=== PATIENT | female | born 1980 | race Caucasian/White ===

== ENCOUNTER → 2016-08-30 | Outpatient (CLI) | payer MEDICAID ==
[2016-08-30 14:34] LABS: Appearance,Urine Clear (Clear); Bilirubin,Urine Negative (Negative); Glucose,Urine (UA) 4+ (Negative); Ketones,Urine Negative (Negative); Leukocyte Esterase,Urine Negative (Negative); Nitrite,Urine Negative (Negative); PH, Urine 7.5 (5.0-8.0); Protein,Urine Trace (Negative); Specific Gravity,Urine 1.022 (1.001-1.035); UA Billing (MACRO vs. MICRO) CHEM; Urobilinogen,Urine <2.0 mg/dL (<2.0)
[2016-08-30 15:12] LABS: Hepatitis B Surface Ag Index 0.08
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
[2016-08-31 10:12] LABS: HIV-1/HIV-2 Ab Screen NONREAC (NON REAC)
== END | disposition home or self-care (01) ==
LOC: WWCWWP 10:33
PROVIDERS: ATTEND Obstetrics & Gynecology
DX: Z11.3 Encounter for screening for infections with a predominantly sexual mode of transmission (principal); Z20.2 Contact with and (suspected) exposure to infections with a predominantly sexual mode of transmission
CPT/HCPCS: 81003; 86780; 87086; 87340; 87389; 87491; 87591

== ENCOUNTER → 2016-12-07 | Outpatient (CLI) | payer MEDICAID ==
[2016-12-07 14:47] LABS: Basophils % (A) 0 %; CH 31.7; CHCM 33.5; Eosinophils # (A) 0.1 k/uL (0-0.7); Eosinophils % (A) 1 %; HCT 48.8 % (34.0-46.0); HDW 2.28; HGB 15.8 gm/dL (11.4-16.0); Luc # (Auto) 0.13; Luc % (Auto) 1; Lymphocytes # (A) 1.6 k/uL (1.0-4.8); Lymphocytes % (A) 16 %; MCH 30.7 pg (25.0-35.0); MCHC 32.3 g/dL (31.0-37.0); MCV 95.1 fL (80.0-100.0); Mean Platelet Volume 7.1; Monocytes # (A) 0.4 k/uL (0-1.0); Monocytes % (A) 4 %; Neutrophils # (A) 7.5 k/uL (1.3-7.7); Neutrophils % (A) 77 %; RBC 5.13 m/uL (3.80-5.40); RDW 12.7 % (11.5-15.5); WBC 9.7 k/uL (3.8-10.6); WBC (Perox) 9.63
[2016-12-07 15:03] LABS: ALT 25 U/L (9-52); AST 25 U/L (14-36); Alkaline Phosphatase 214 U/L (38-126); Anion Gap 10 mmol/L; Blood Urea Nitrogen 12 mg/dL (7-17); Calcium 9.9 mg/dL (8.4-10.2); Carbon Dioxide 25 mmol/L (22-30); Chloride 104 mmol/L (98-107); Creatine Kinase 66 U/L (30-135); Glucose 245 mg/dL (74-99); Non-African American GFR(MDRD) >60 (>60 ml/min/1.73 sqM); Potassium 4.6 mmol/L (3.5-5.1); Sodium 139 mmol/L (137-145); Total Bilirubin 0.5 mg/dL (0.2-1.3); Total Protein 7.8 g/dL (6.3-8.2)
[2016-12-07 17:46] LABS: Hemoglobin A1C 7.9 % (4.2-6.1)
== END | disposition home or self-care (01) ==
LOC: LABWHC1 14:13
PROVIDERS: ATTEND Internal Medicine
DX: F41.9 Anxiety disorder, unspecified (principal)
CPT/HCPCS: 36415; 80053; 82550; 83036; 84439; 84443; 84484; 85025; 85379

== ENCOUNTER → 2016-12-12 | Outpatient (CLI) | payer MEDICAID ==
--- NOTE | 2016-12-12 09:22 | US ---
EXAMINATION TYPE: US abdomen complete DATE OF EXAM: 12/12/2016 7:57 AM COMPARISON: NONE CLINICAL HISTORY: Abnormal level of Alkaline Phosphates R74.8. epigastric pain EXAM MEASUREMENTS: Liver Length: 9.2 cm Gallbladder Wall: Surgically absent cm CBD: 0.4 cm Spleen: 9.8 cm Right Kidney: 9.6 x 3.7 x 4.3 cm Left Kidney: 9.9 x 4.1 x 5.0 cm Pancreas: visualized portions wnl Liver: wnl Gallbladder: Surgically absent CBD: wnl Spleen: wnl Right Kidney: No hydronephrosis or nephrolithiasis. Left Kidney: No hydronephrosis or nephrolithiasis. Upper IVC: wnl Abd Aorta: wnl The liver is homogenous. The intrahepatic portion of the IVC and proximal abdominal aorta are within normal limits. Gallbladder surgically absent.. Common bile duct is unremarkable. The visualized po rtions of the pancreas are homogenous. The spleen is unremarkable. Kidneys are symmetric and free o f hydronephrosis. No renal lesions are seen. IMPRESSION: 1. No acute process.
--- NOTE | 2016-12-12 11:38 | NM ---
EXAMINATION TYPE: NM bone scan whole body DATE OF EXAM: 12/12/2016 11:26 AM COMPARISON: NONE HISTORY: Abnormal alkaline phosphatase Delayed whole-body scanning was performed following the injection of 24.6 mCi Tc 99m MDP. Images acq uired 3 hours post injection. FINDINGS: Uptake seen within the feet is typical of arthritic change. There is no abnormal increased or reduced uptake. Renal uptake is normal. IMPRESSION: No significant abnormality noted
== END ==
LOC: RADNMMAIN 06:59
PROVIDERS: ATTEND Internal Medicine
DX: R74.8 Abnormal levels of other serum enzymes (principal)
CPT/HCPCS: 76700; 78306; A9503

== ENCOUNTER → 2017-03-13 | Outpatient (CLI) | payer MEDICAID ==
[2017-03-13 07:48] LABS: Basophils % (A) 0 %; CH 31.6; CHCM 33.2; Eosinophils # (A) 0.1 k/uL (0-0.7); Eosinophils % (A) 2 %; HDW 2.29; HGB 15.1 gm/dL (11.4-16.0); Luc # (Auto) 0.09; Luc % (Auto) 2; Lymphocytes # (A) 1.3 k/uL (1.0-4.8); Lymphocytes % (A) 23 %; MCH 32.8 pg (25.0-35.0); MCHC 34.3 g/dL (31.0-37.0); MCV 95.5 fL (80.0-100.0); Mean Platelet Volume 7.6; Monocytes # (A) 0.3 k/uL (0-1.0); Monocytes % (A) 5 %; Neutrophils # (A) 3.8 k/uL (1.3-7.7); Neutrophils % (A) 68 %; WBC 5.6 k/uL (3.8-10.6); WBC (Perox) 5.46
[2017-03-13 09:50] LABS: Hemoglobin A1C 8.4 % (4.2-6.1)
[2017-03-13 10:47] LABS: ALT 29 U/L (9-52); AST 21 U/L (14-36); Alkaline Phosphatase 142 U/L (38-126); Anion Gap 8 mmol/L; Blood Urea Nitrogen 11 mg/dL (7-17); Calcium 9.4 mg/dL (8.4-10.2); Carbon Dioxide 28 mmol/L (22-30); Chloride 103 mmol/L (98-107); Cholesterol 136 mg/dL (<200); Creatine Kinase 58 U/L (30-135); Glucose 248 mg/dL (74-99); HDL Cholesterol 55 mg/dL (40-60); Iron 134 ug/dL (37-170); Non-African American GFR(MDRD) >60 (>60 ml/min/1.73 sqM); Potassium 4.9 mmol/L (3.5-5.1); Sodium 139 mmol/L (137-145); Total Bilirubin 0.8 mg/dL (0.2-1.3); Total Protein 6.8 g/dL (6.3-8.2); Triglycerides 84 mg/dL (<150)
[2017-03-13 10:57] LABS: % Iron Saturation 50.2 % (20-50); Total Iron Binding Capacity 267 ug/dL (265-497)
== END | disposition home or self-care (01) ==
LOC: LABWHC1 07:04
PROVIDERS: ATTEND Internal Medicine
DX: E06.3 Autoimmune thyroiditis (principal); K58.9 Irritable bowel syndrome, unspecified; F41.9 Anxiety disorder, unspecified; L50.2 Urticaria due to cold and heat
CPT/HCPCS: 36415; 80053; 80061; 82550; 82728; 83036; 83540; 83550; 84439; 84443; 85025

== ENCOUNTER → 2017-03-22 | Outpatient (CLI) | payer MEDICAID ==
--- NOTE | 2017-03-22 10:37 | XR ---
Cervical spine HISTORY: Polyarthritis, M13.0 5 views of the cervical spine Cervical vertebral bodies show preserved height, alignment, and bone mineralization. There is no evid ent foraminal encroachment. Disc spaces and prevertebral soft tissues are normal. Minimal anterolisth esis grade 1 C7-T1. Sclerosis present in the posterior elements at this level. IMPRESSION: Facet arthropathy at the cervicothoracic junction. Cervical MRI may be of benefit.
--- NOTE | 2017-03-22 10:39 | XR ---
Lumbar spine HISTORY: Polyarthritis, M13.0 3 views of the lumbar spine No comparisons Surgical clips are present in the right upper quadrant. Lumbar vertebral bodies show preserved height , alignment, and bone mineralization. Disc spaces are maintained with the exception of some loss of d isc height L5-S1. There is multilevel spondylosis. Sclerosis present in the posterior elements of the lumbosacral junction. IMPRESSION: Mild degenerative disc disease, facet arthropathy.
--- NOTE | 2017-03-22 10:42 | XR ---
Thoracic spine HISTORY: Polyarthritis 3 views of the thoracic spine Comparison the lumbar spine same date Thoracic vertebral bodies show preserved height, alignment, and bone mineralization. Disc spaces are maintained. No paraspinal mass. IMPRESSION: No significant abnormalities evident.
--- NOTE | 2017-03-22 10:44 | XR ---
AP pelvis HISTORY: Polyarthritis, M13.0 Single frontal view pelvis, no comparisons Bone mineralization, joint spaces and alignment are maintained IMPRESSION: No significant abnormalities evident.
== END | disposition home or self-care (01) ==
LOC: RADXRMAIN 09:27
PROVIDERS: ATTEND Physician Assistant
DX: M51.36 Other intervertebral disc degeneration, lumbar region (principal); M12.88 Other specific arthropathies, not elsewhere classified, other specified site
CPT/HCPCS: 36415; 72050; 72072; 72100; 72170; 80053; 81001; 82085; 82164; 82306; 82550; 83516; 83883; 84165; 84432; 84439; 84443; 84550; 85025; 85613; 85652; 85730; 86038; 86140; 86147; 86160; 86162; 86200; 86225; 86235; 86255; 86334; 86376; 86431; 86803; 86812; 87340

== ENCOUNTER → 2017-03-22 | Outpatient (CLI) | payer MEDICAID ==
[2017-03-22 10:49] LABS: Basophils % (A) 0 %; CHCM 34.3; Eosinophils # (A) 0.1 k/uL (0-0.7); Eosinophils % (A) 2 %; HCT 44.9 % (34.0-46.0); HDW 2.39; HGB 14.7 gm/dL (11.4-16.0); Luc # (Auto) 0.09; Luc % (Auto) 1; Lymphocytes # (A) 1.7 k/uL (1.0-4.8); Lymphocytes % (A) 22 %; MCH 30.8 pg (25.0-35.0); MCHC 32.9 g/dL (31.0-37.0); MCV 93.6 fL (80.0-100.0); Mean Platelet Volume 8.4; Monocytes # (A) 0.4 k/uL (0-1.0); Monocytes % (A) 5 %; Neutrophils # (A) 5.3 k/uL (1.3-7.7); Neutrophils % (A) 70 %; RBC 4.79 m/uL (3.80-5.40); RDW 13.3 % (11.5-15.5); WBC 7.6 k/uL (3.8-10.6); WBC (Perox) 7.08
[2017-03-22 10:56] LABS: Appearance,Urine Cloudy (Clear); Bacteria,Urine Occasional /hpf; Bilirubin,Urine Negative (Negative); Glucose,Urine (UA) Negative (Negative); Ketones,Urine 1+ (Negative); Leukocyte Esterase,Urine Trace (Negative); Mucus,Urine Occasional /hpf; Nitrite,Urine Negative (Negative); PH, Urine 6.5 (5.0-8.0); Particle Count 3510; Protein,Urine Negative (Negative); Specific Gravity,Urine 1.009 (1.001-1.035); Squamous Epithelial Cell,Urine 6 /hpf (0-4); UA Billing (MACRO vs. MICRO) MICRO; Urobilinogen,Urine <2.0 mg/dL (<2.0); WBC,Urine 5 /hpf (0-5)
[2017-03-22 11:13] LABS: ALT 32 U/L (9-52); AST 27 U/L (14-36); Alkaline Phosphatase 108 U/L (38-126); Anion Gap 10 mmol/L; Blood Urea Nitrogen 6 mg/dL (7-17); Calcium 9.6 mg/dL (8.4-10.2); Carbon Dioxide 27 mmol/L (22-30); Chloride 102 mmol/L (98-107); Creatine Kinase 65 U/L (30-135); Glucose 112 mg/dL (74-99); Non-African American GFR(MDRD) >60 (>60 ml/min/1.73 sqM); Potassium 3.9 mmol/L (3.5-5.1); Sodium 139 mmol/L (137-145); Total Bilirubin 0.8 mg/dL (0.2-1.3); Total Protein 7.1 g/dL (6.3-8.2); Uric Acid 2.9 mg/dL (3.7-7.4)
[2017-03-22 11:43] LABS: Hepatitis B Surface Ag Index 0.07
[2017-03-22 12:00] LABS: Hepatitis C Virus IgG Ab Negative (Negative); Hepatitis C Virus IgG Index 0.04
[2017-03-22 12:35] LABS: Erythrocyte Sedimentation Rate 10 mm/hr (0-20)
[2017-03-22 16:09] LABS: Rheumatoid Factor, Qnt 10 IU/mL (<12)
[2017-03-22 16:18] LABS: ANA w/Reflex to Titer NEGATIVE (NEGATIVE); Cyclic Citrull Pep IgG Unit 0.7 U/mL; Cyclic Citrullinated Pep IgG NEGATIVE (NEGATIVE); RNP AB Interpretation NEGATIVE (NEGATIVE); Scleroderma SC-70 Ab Interp NEGATIVE (NEGATIVE)
[2017-03-23 05:55] LABS: Complement Total (CH50) 41 U/mL (42 - 95)
[2017-03-23 06:02] LABS: Aldolase 3.7 U/L (1.2-7.6)
[2017-03-23 09:18] LABS: Free Kappa Lt Chain Qnt, Serum 1.72 mg/dL (0.33-1.94)
[2017-03-23 12:23] LABS: HLA B27 NEGATIVE; HLA B27 Comment SEEBELOW
[2017-03-26 07:40] LABS: C-ANCA <1:20 Titer (<1:20); P-ANCA <1:20 Titer (<1:20)
== END | disposition home or self-care (01) ==
LOC: LABWHC1 10:02
PROVIDERS: ATTEND Physician Assistant
DX: E06.3 Autoimmune thyroiditis (principal); M13.0 Polyarthritis, unspecified
CPT/HCPCS: 36415; 80053; 81001; 82085; 82164; 82306; 82550; 83516; 83883; 84165; 84432; 84439; 84443; 84550; 85025; 85613; 85652; 85730; 85732; 86038; 86140; 86147; 86160; 86162; 86200; 86225; 86235; 86255; 86334; 86376; 86431; 86803; 86812; 87340

== ENCOUNTER → 2017-06-26 | Outpatient (CLI) | payer MEDICAID ==
--- NOTE | 2017-06-26 14:50 | MR ---
EXAMINATION TYPE: MR cervical spine wo con DATE OF EXAM: 06/26/2017 COMPARISON: NONE HISTORY: 37 year-old female cervical disc disorder at C5-C6 TECHNIQUE: Multiplanar, multisequence images of the cervical spine were acquired. Findings: No craniocervical junction abnormalities, predental space widening, or prevertebral soft tissue swell ing. Normal alignment of the cervical spine. Fatty matrix hemangioma within the left C3 vertebral body. No suspicious bone marrow replacement. Very mild early disc desiccation in the upper to mid cervical spine with slight posterior disc bulgin g at C4-C5 and C5-C6. Scattered mild facet degenerative change. There is no significant neuroforaminal stenosis within the cervical spine. At C3-C4, C4-C5, and C5-C6, there is minimal ventral impression on the thecal sac but without signifi cant spinal canal stenosis. No cord abutment or cord flattening. There is normal course, caliber, and signal intensity of the cervical spinal cord. There is a 1.1 cm T2 hyperintense nodule left lobe of the thyroid gland. IMPRESSION: 1. Very mild early disc desiccation in the upper to mid cervical spine with minimal posterior disc bu lging and scattered mild facet degenerative changes. 2. No significant spinal canal or neuroforaminal stenosis. 3. A 1.1 cm nodule in the left lobe of the thyroid gland can be further evaluated with thyroid ultras ound.
== END | disposition home or self-care (01) ==
LOC: RADMRIMAIN 10:43
PROVIDERS: ATTEND Internal Medicine
DX: M50.20 Other cervical disc displacement, unspecified cervical region (principal)
CPT/HCPCS: 72141

== ENCOUNTER → 2017-06-28 | Outpatient (CLI) | payer MEDICAID ==
--- NOTE | 2017-06-28 14:48 | US ---
EXAMINATION TYPE: US thyroid st tissue head/neck DATE OF EXAM: 06/28/2017 COMPARISON: MRI cervical spine June 26, 2017 CLINICAL HISTORY: E04.1 THYROID NODULE. 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 0.8 X 0.4 x 0.3 cm hypoechoic mixed nodule at the lower medial pole with well-defined margins. This nodule is wider than tall and shows no intranodular vascularity. LEFT: # of nodules measured on left: 1 1. 1.5 X 1.1 x 0.9 cm isoechoic solid nodule at the mid pole with well-defined margins. This nodul e is taller than wide. and shows intranodular vascularity. ISTHMUS: # of nodules measured in the isthmus: 0 Bilateral neck scanned, no evidence of lymphadenopathy. Correlating with MRI there is a normal-sized thyroid gland with 1.5 cm isoechoic solid nodule mid jalil e level with well-defined margins and peripheral halo or lucency IMPRESSION: A 1.5 cm isoechoic solid nodule is confirmed left thyroid lobe. Need to further investigate by ultras ound guided fine-needle aspiration should be based on clinical correlation.
== END | disposition home or self-care (01) ==
LOC: RADUSWWP 12:47
PROVIDERS: ATTEND Internal Medicine
DX: E04.1 Nontoxic single thyroid nodule (principal)
CPT/HCPCS: 76536

== ENCOUNTER 2017-07-06 12:28 | Day surgery (SDC) | payer MEDICAID ==
[2017-07-06] MEDS: ALPRAZolam 0.5 MG TAB PO STA ×2 (13:04→13:08)
--- NOTE | 2017-07-06 14:34 | US ---
EXAMINATION TYPE: US FNA thyroid DATE OF EXAM: 07/06/2017 COMPARISON: NONE HISTORY: Thyroid nodule. Maximal barrier technique was utilized. After informed consent, skin overlying the lesion was locali zed with ultrasound and the overlying skin prepped and draped. Ultrasound was utilized using sterile technique. Lidocaine was used for local anesthesia. six passes with a 25-gauge needle were made into the nodule and aspirated specimen was submitted to cytology. Following the procedure hemostasis ach ieved. No immediate complication. The patient discharged in stable condition. IMPRESSION: STATUS POST ULTRASOUND GUIDED FINE NEEDLE ASPIRATION OF THYROID NODULE, PATHOLOGY IS PEND ING. THIS PROCEDURE WAS PERFORMED BY THE UNDERSIGNED.
[2017-07-06 14:41] VITALS: TEMP 97.1
[2017-07-06 14:42] VITALS: BP 109/73; PULSE 75; RESP 16
== END 2017-07-06 14:40 | disposition home or self-care (01) ==
LOC: RADPROMAIN 12:28
PROVIDERS: ATTEND Internal Medicine
DX: E04.1 Nontoxic single thyroid nodule (principal)
CPT/HCPCS: 10022; 76942; 88173; 88305

== ENCOUNTER → 2017-11-10 | Outpatient (CLI) | payer MEDICAID ==
[2017-11-10 11:26] LABS: Basophils % (A) 0 %; Eosinophils # (A) 0.1 k/uL (0-0.7); Eosinophils % (A) 1 %; HCT 46.1 % (34.0-46.0); Lymphocytes # (A) 1.9 k/uL (1.0-4.8); Lymphocytes % (A) 25 %; MCH 30.2 pg (25.0-35.0); MCHC 32.5 g/dL (31.0-37.0); MCV 92.8 fL (80.0-100.0); Mean Platelet Volume 7.5; Monocytes # (A) 0.5 k/uL (0-1.0); Monocytes % (A) 6 %; Neutrophils % (A) 67 %; Platelet Count 244 k/uL (150-450); RBC 4.97 m/uL (3.80-5.40); RDW 13.1 % (11.5-15.5); WBC 7.6 k/uL (3.8-10.6)
[2017-11-10 11:39] LABS: ALT 22 U/L (9-52); AST 23 U/L (14-36); Albumin 4.2 g/dL (3.5-5.0); Alkaline Phosphatase 174 U/L (38-126); Anion Gap 10 mmol/L; Blood Urea Nitrogen 10 mg/dL (7-17); Calcium 9.7 mg/dL (8.4-10.2); Carbon Dioxide 26 mmol/L (22-30); Chloride 104 mmol/L (98-107); Cholesterol 142 mg/dL (<200); Creatine Kinase 62 U/L (30-135); Glucose 228 mg/dL (74-99); HDL Cholesterol 72 mg/dL (40-60); LDL Cholesterol,Calculated 62 mg/dL (0-99); Potassium 4.6 mmol/L (3.5-5.1); Sodium 140 mmol/L (137-145); Total Bilirubin 0.9 mg/dL (0.2-1.3); Total Protein 7.4 g/dL (6.3-8.2); Triglycerides 39 mg/dL (<150)
[2017-11-10 11:54] LABS: T4, Free (Free Thyroxine) 0.93 ng/dL (0.78-2.19)
[2017-11-10 17:02] LABS: Iron Saturation 38.11 (12.00-45.00)
[2017-11-10 17:11] LABS: Vitamin D 25 Hydroxy 27.2 ng/mL (30.0-100.0)
[2017-11-10 18:32] LABS: Hemoglobin A1C 7.8 % (4.0-6.0)
== END | disposition home or self-care (01) ==
LOC: LABWHC1 07:52
PROVIDERS: ATTEND Internal Medicine
DX: E06.3 Autoimmune thyroiditis (principal); E55.9 Vitamin D deficiency, unspecified; D64.9 Anemia, unspecified
CPT/HCPCS: 36415; 80053; 80061; 82306; 82550; 82728; 83036; 83540; 83550; 84439; 84443; 85025

== ENCOUNTER → 2017-12-04 | Outpatient (CLI) | payer MEDICAID ==
[2017-12-04 14:26] VITALS: BP 120/84; PULSE 92; TEMP 97.5; BMI 25.3
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
== END | disposition home or self-care (01) ==
LOC: WWCWWP 09:36
PROVIDERS: ATTEND Obstetrics & Gynecology
DX: Z53.9 Procedure and treatment not carried out, unspecified reason (principal)

== ENCOUNTER → 2017-12-04 | Outpatient (CLI) | payer MEDICAID ==
[2017-12-05 06:19] LABS: Hepatitis C IgG Antibody Non-Reactive (Non-Reactive)
[2017-12-05 06:23] LABS: HIV AB P24 Non-Reactive (Non-Reactive); HIV P24 AG Non-Reactive (Non-Reactive)
[2017-12-06 16:27] LABS: C. trachomatis,PCR Negative (Neg,Equiv); Chlamydia trachomatis Source Cervix; N. gonorrhoeae,PCR Negative (Neg,Equiv); Neisseria Source Cervix
== END | disposition home or self-care (01) ==
LOC: LABWHC1 17:10
PROVIDERS: ATTEND Obstetrics & Gynecology
DX: Z11.3 Encounter for screening for infections with a predominantly sexual mode of transmission (principal)
CPT/HCPCS: 36415; 86780; 86803; 87340; 87390; 87491; 87591

== ENCOUNTER → 2017-12-26 | Outpatient (CLI) | payer MEDICAID ==
--- NOTE | 2017-12-26 12:43 | US ---
EXAMINATION TYPE: US pelvis complete transvag DATE OF EXAM: 12/26/2017 COMPARISON: NONE CLINICAL HISTORY: N92.0 Menorrhagia W/Regular cycle. TECHNIQUE: Transvaginal (TV) and Transabdominal (TA) . Transabdominal sonographic images of the pel vis were acquired. Transvaginal sonographic images were medically necessary to better assess the fol lowing anatomy: uterus and ovaries Date of LMP: unknown EXAM MEASUREMENTS: Uterus: 7.7 x 3.8 x 5.6 cm Endometrial Stripe: 0.9 cm Right Ovary: 3.1 x 1.4 x 2.3 cm Left Ovary: 4.5 x 2.0 x 2.3 cm 1. Uterus: Retroverted Nabothian cyst = 0.7cm 2. Endometrium: wnl 3. Right Ovary: follicles noted 4. Left Ovary: follicles noted 5. Bilateral Adnexa: wnl 6. Posterior cul-de-sac: wnl IMPRESSION: Unremarkable endometrial thickness and uterine echogenicity. Ovaries are also within norm al limits.
== END | disposition home or self-care (01) ==
LOC: RADUSWWP 10:58
PROVIDERS: ATTEND Obstetrics & Gynecology
DX: N92.0 Excessive and frequent menstruation with regular cycle (principal)
CPT/HCPCS: 76830; 76856

== ENCOUNTER → 2018-01-03 | Outpatient (CLI) | payer MEDICAID ==
[2018-01-03 12:08] LABS: Basophils % (A) 0 %; Eosinophils # (A) 0.1 k/uL (0-0.7); Eosinophils % (A) 1 %; HCT 44.6 % (34.0-46.0); HGB 14.7 gm/dL (11.4-16.0); Lymphocytes # (A) 1.1 k/uL (1.0-4.8); Lymphocytes % (A) 15 %; MCH 30.5 pg (25.0-35.0); MCHC 33.1 g/dL (31.0-37.0); MCV 92.2 fL (80.0-100.0); Mean Platelet Volume 7.7; Monocytes # (A) 0.3 k/uL (0-1.0); Monocytes % (A) 5 %; Neutrophils # (A) 5.7 k/uL (1.3-7.7); Neutrophils % (A) 78 %; Platelet Count 250 k/uL (150-450); RBC 4.84 m/uL (3.80-5.40); RDW 12.8 % (11.5-15.5); WBC 7.3 k/uL (3.8-10.6)
== END | disposition home or self-care (01) ==
LOC: LABPAT 10:53
PROVIDERS: ATTEND Obstetrics & Gynecology
DX: Z01.812 Encounter for preprocedural laboratory examination (principal)
CPT/HCPCS: 36415; 85025

== ENCOUNTER 2018-01-04 06:03 | Day surgery (SDC) | payer MEDICAID ==
[2018-01-03 09:14] VITALS: BMI 24.5
--- NOTE | 2018-01-03 20:14 | P.HPOB ---
History of Present Illness H&P Date: 01/03/18 Chief Complaint: Menorrhagia, family planning This is a 37 y.o. female, 1, para 1, who presents for dilation and curettage with hysteroscopy and Novasure endometrial ablation along with laparoscopic bilateral tubal ligation via fulguration. She complains of menstrual cycles that have been very heavy and worsening over the last couple months. Her periods have been heavy and painful for at least a year but have become abnormally long over the last couple months. She complains of cramping dizziness and low back pain with her menses. She is unable to take control pills secondary to her other medical problems. Her menses are currently occurring monthly and lasting up to 10 days with spotting for 4-7 days and then a heavy cycle for 3-4 days with large clots. She can only wear panty liners due to ALLERGIES and sometimes will bleed through the panty liner. She desires no further children and would like to ligation for family planning. Obstetrical history: . History of 1 vaginal delivery. Gynecologic history: No history of sexual transmitted diseases. She is currently using condoms for control. Social history: She is . She works full-time at [employer] in [place]. Review of Systems Constitutional: Denies chills, Denies fever Eyes: denies blurred vision, denies pain Ears, nose, mouth and throat: Denies headache, Denies sore throat Cardiovascular: Denies chest pain, Denies shortness of breath Respiratory: Denies cough Gastrointestinal: Reports diarrhea Genitourinary: Reports menorrhagia Menstruation: Reports period heavy Musculoskeletal: Reports low back pain Integumentary: Denies pruritus, Denies rash Neurological: Denies numbness, Denies weakness Psychiatric: Reports anxiety, Reports depression Endocrine: Reports cold intolerance Past Medical History Past Medical History: Diabetes Mellitus, Skin Disorder, Thyroid Disorder Additional Past Medical History / Comment(s): ibs, hashimotos disease, cold induced urticaria, small hiatal hernia, celiac disease History of Any Multi-Drug Resistant Organisms: None Reported Past Surgical History: Cholecystectomy, Ear Surgery, Orthopedic Surgery Additional Past Surgical History / Comment(s): left foot bunionectomy, wisdom teeth removed Past Anesthesia/Blood Transfusion Reactions: Motion Sickness Additional Past Anesthesia/Blood Transfusion Reaction / Comment(s): claustrophobia Past Psychological History: Anxiety Smoking Status: Never smoker Past Alcohol Use History: Occasional Past Drug Use History: None Reported - Past Family History Mother Family Medical History: No Reported History Additional Family Medical History / Comment(s): . Father Family Medical History: Hyperlipidemia Additional Family Medical History / Comment(s): also aunt had thyroid cancer Medications and Allergies Home Medications Medication Instructions Recorded Confirmed Type Insulin Aspart [NovoLOG Flexpen] 0 unit SQ TID-W/MEALS PRN 11/04/14 01/03/18 History Insulin Glargine,Hum.rec.anlog 20 units SQ HS 11/05/14 01/03/18 History [Lantus Solostar] Escitalopram [Lexapro] 5 mg PO DAILY 07/03/17 01/03/18 History ALPRAZolam [Xanax] 0.5 mg PO TID PRN 01/03/18 01/03/18 History Biotin(Dose Unknown) 1 tbsp PO HS 01/03/18 01/03/18 History Dicyclomine [Bentyl] 20 mg PO TID PRN 01/03/18 01/03/18 History Pedi Multivit No.25/Folic Acid 1 tab PO DAILY 01/03/18 01/03/18 History [Flintstones Multivit Chew Tab] Allergies Allergy/AdvReac Type Severity Reaction Status Date / Time latex Allergy Rash/Hives Verified 01/03/18 09:01 loracarbef [From Lorabid] AdvReac Diarrhea Verified 01/03/18 09:01 Sulfa (Sulfonamide AdvReac Rash/Hives Verified 01/03/18 09:01 Antibiotics) cold allegy Allergy Rash/Hives, Uncoded 01/03/18 09:01 itching oats, milk, wheat, Allergy Unknown Uncoded 01/03/18 09:01 peanuts,eggs,soy Exam Osteopathic Statement: *. No significant issues noted on an osteopathic structural exam other than those noted in the History and Physical/Consult. - Vital Signs Vital signs: Intake and Output 01/03/18 01/03/18 01/03/18 06:59 14:59 22:59 Other: Weight 58.967 kg HEENT: Within normal limits Heart: Regular rate and rhythm Lungs: Clear to auscultation bilaterally Abdomen: Soft, nontender Pelvic exam: Uterus is retroverted, nontender, with no adnexal masses or tenderness noted. Extremities: Negative Homans Assessment and Plan (1) Menorrhagia with regular cycle Status: Acute Code(s): N92.0 - EXCESSIVE AND FREQUENT MENSTRUATION WITH REGULAR CYCLE SNOMED Code(s): 633493501 (2) Family planning Status: Acute Code(s): Z30.09 - ENCOUNTER FOR OT GENERAL CNSL AND ADVICE ON CONTRACEPTION SNOMED Code(s): 887017202 Plan: Proceed with dilation and curettage with hysteroscopy and NovaSure endometrial ablation along with laparoscopic bilateral tubal ligation via fulguration. I have discussed the risks, benefits, and alternative therapies for the above- mentioned procedure and for both sedation/anesthesia as well as necessary blood products administration, if indicated, as they pertain to this patient. The patient has indicated her understanding and acceptance of the risks and procedures discussed.
[~2018-01-04 06:03] MED LIST: DEXAMETHASONE SOD PHOSPHATE 10 MG/ML 1 ML VIAL IV ONE; LACTATED RINGERS 1,000 ML IV SCH; MIDAZOLAM 2 MG/2 ML VIAL IV PRN; ONDANSETRON 4 MG/2 ML VIAL IVP ONE; Pre Op ABX Message 1 EACH MISC MISCELLANE ONE; SCOPOLAMINE 1.5MG/72HR PATCH TRANSDERM ONE; fentaNYL (PF) 50 MCG/ML 2 ML AMP IV PRN
[2018-01-04 06:46] VITALS: RESP 16
[2018-01-04] MEDS ORDERED: LIDOCAINE 1% 20 ML VIAL (10MG/ML) FOR IV START INTRADERMA ONE (07:18)
[2018-01-04 07:23] LABS: Glucose,Whole Blood 191 mg/dL (75-99)
[2018-01-04] MEDS ORDERED: ROCURONIUM BROMIDE 10 MG/ML 10 ML VIAL IV ONE (07:35)
[2018-01-04] MEDS ORDERED: SUCCINYLCHOLINE CHLORIDE 100 MG/5 ML SYR IV ONE (07:35)
[2018-01-04] MEDS ORDERED: NEOSTIGMINE 1 MG/ML 10 ML VIAL ONE (07:35)
[2018-01-04] MEDS ORDERED: MIDAZOLAM 2 MG/2 ML VIAL ONE (07:35)
[2018-01-04] MEDS ORDERED: GLYCOPYRROLATE 0.2 MG/ML 2 ML VIAL ONE (07:35)
[2018-01-04] MEDS ORDERED: KETOROLAC 30 MG/ML 1 ML VIAL ONE (07:35)
[2018-01-04] MEDS ORDERED: PROPOFOL 10 MG/ML 20 ML VIAL IV ONE (07:35)
[2018-01-04] MEDS ORDERED: fentaNYL (PF) 50 MCG/ML 2 ML AMP ONE (07:35)
[2018-01-04] MEDS ORDERED: LIDOCAINE 1% INJ 10MG/ML (20 ML MDV) ONE (07:35)
[2018-01-04] MEDS ORDERED: BUPIVACAINE (PF) 0.25% 30 ML VIAL SQ ONE ×2 (08:15)
--- NOTE | 2018-01-04 08:30 | P.OP ---
Date of Procedure: 01/04/18 Preoperative Diagnosis: Menorrhagia with regular cycle Family planning Postoperative Diagnosis: Same Procedure(s) Performed: Dilation and curettage with hysteroscopy and NovaSure endometrial ablation Laparoscopic bilateral tubal ligation via fulguration Anesthesia: LASHAWN Surgeon: Liliam Mclean Estimated Blood Loss (ml): 5 Pathology: other (Endometrial curettings) Condition: stable Disposition: same day Indications for Procedure: This is a 37 y.o. female, 1, para 1, who presents for dilation and curettage with hysteroscopy and Novasure endometrial ablation along with laparoscopic bilateral tubal ligation via fulguration. She complains of menstrual cycles that have been very heavy and worsening over the last couple months. Her periods have been heavy and painful for at least a year but have become abnormally long over the last couple months. She complains of cramping dizziness and low back pain with her menses. She is unable to take control pills secondary to her other medical problems. Her menses are currently occurring monthly and lasting up to 10 days with spotting for 4-7 days and then a heavy cycle for 3-4 days with large clots. She can only wear panty liners due to ALLERGIES and sometimes will bleed through the panty liner. She desires no further children and would like to ligation for family planning. Operative Findings: Uterus is retroverted. Cervix is sounded to 3-1/2 cm. Uterus is sounded to 7 cm. Upon hysteroscopy, a fairly dyssynchronous endometrial pattern was noted. Both tubal ostia were visualized. A minimal to moderate amount of endometrial curettings are obtained. Upon laparoscopy, normal uterus tubes and ovaries are noted. Appendix is visualized and appears normal. Description of Procedure: The patient is taken to the operating room. She is placed in the dorsal lithotomy position after general anesthesia was given. She is prepped and draped in the normal sterile fashion. Bladder is drained with a catheter and then removed. Pelvic exam is performed under anesthesia. Uterus is found to be retroverted with no adnexal masses. She is placed in slight Trendelenburg position. A right angle retractor is used to visualize the cervix. The anterior lip of the cervix is grasped with a single-tooth tenaculum. Cervix is sounded to 3.5 cm. Uterus is sounded to 7 cm. Cervix is gently dilated with Gomez dilators until a hysteroscope could be passed. Hysteroscopy is performed using normal saline. The above noted findings are noted. Next a polyp forceps is introduced. A minimal amount of tissue was obtained. Next medium-sized size sharp curette was placed. A moderate amount of endometrial curettings were obtained. Next NovaSure array was inserted into the endometrial cavity. Length was set at 4 cm and width was determined to be 4.3 cm. Next cavity assessment was completed and passed on the first try. Next NovaSure array was fired at 95 W for 87 seconds. Next the array was removed, inspected and then discarded. Next the hysteroscope was reinserted. Uniform charring was noted. Pictures were taken. Hysteroscope was removed. Next a kroner uterine manipulator is inserted through the cervix and the balloon is inflated. Single- tooth tenaculum was removed from the anterior lip of the cervix. Minimal bleeding was noted. All other instruments removed from the vagina. Gloves are changed and attention is turned to the abdomen. The infraumbilical fold was grasped in transverse fashion with 2 Allis clamps. A small transverse incision was made with a scalpel. A hemostat was used to carry the incision down to the underlying layer of fascia. A towel clip was placed above the umbilicus for retraction. A 11 mm disposable bladeless trocar was then inserted into the peritoneal cavity under direct visualization. Once inside, pneumoperitoneum was achieved with CO2 gas. The insert was removed and the camera was placed. Intraperitoneal placement was confirmed. No bleeding was noted. Next the patient was placed in Trendelenburg position. A small stab incision was made suprapubically and a 5 mm disposable bladeless trocar was inserted into the peritoneal cavity under direct visualization. Once inside pelvic contents were inspected. Next a bipolar Kleppinger instrument was placed through the inferior trocar and the midportion of each tube was brought away from other structures and completely fulgurated on approximate 2-3 cm segment of each tube. Excellent hemostasis was noted. A picture was taken. Pneumoperitoneum was released after the inferior trocar was removed under direct visualization. The upper trocar was then removed. The fascial incision was closed with 0 Vicryl suture in interrupted [id number]-ad-[id number] stitch. The skin incisions were then closed with 4-0 Vicryl suture in a subcuticular fashion. The skin incisions are then injected with quarter percent Marcaine. Approximately 7 mL were used. Next the kroner uterine manipulator was removed. Minimal bleeding was noted. All sponge and needle counts are correct. The patient is then taken to recovery room in stable condition.
[2018-01-04 08:50] VITALS: TEMP 96.8
[2018-01-04] MEDS ORDERED: HYDROmorphone 0.5 MG/0.5 ML SYRINGE IVP ONE (08:57)
[2018-01-04] MEDS ORDERED: diphenhydrAMINE 50 MG/ML 1 ML VIAL IVP ONE (09:00)
[2018-01-04 10:51] VITALS: BP 113/77; PULSE 74
[2018-01-04 11:11] LABS: Glucose,Whole Blood 234 mg/dL (75-99)
== END 2018-01-04 11:43 | disposition home or self-care (01) ==
LOC: OR 06:03
PROVIDERS: ATTEND Obstetrics & Gynecology
DX: Z30.2 Encounter for sterilization (principal); N92.0 Excessive and frequent menstruation with regular cycle; N85.4 Malposition of uterus; E11.9 Type 2 diabetes mellitus without complications; E06.3 Autoimmune thyroiditis; K58.9 Irritable bowel syndrome, unspecified; K90.0 Celiac disease; L50.2 Urticaria due to cold and heat; F41.9 Anxiety disorder, unspecified; Z79.4 Long term (current) use of insulin; Z79.899 Other long term (current) drug therapy; Z91.040 Latex allergy status; Z88.2 Allergy status to sulfonamides; Z91.012 Allergy to eggs; Z91.011 Allergy to milk products; Z91.010 Allergy to peanuts; Z91.018 Allergy to other foods; Z91.048 Other nonmedicinal substance allergy status; Z88.1 Allergy status to other antibiotic agents
CPT/HCPCS: 88305; 58563; 58670; J2250; J1200; J1100; J2710; J2405; J2001; J3010; J1885; J0330; J2704; J1170; 81025; 86850; 86900; 86901

== ENCOUNTER → 2018-03-14 | Outpatient (CLI) | payer MEDICAID ==
--- NOTE | 2018-03-14 10:54 | ECHOS ---
STRESS ECHOCARDIOGRAM INDICATIONS: Chest pain. MEDICATIONS: NovoLog, Lantus BASELINE HEART RATE: 81 BASELINE BLOOD PRESSURE: 100/75 MAXIMUM HEART RATE: 176 MAXIMUM BLOOD PRESSURE: 125/66 85% MPHR: 156 100% MPHR: 184 METS: 11.7 MAXIMUM STAGE REACHED: III TOTAL EXERCISE TIME: 10:01 CLINICAL INFORMATION: Baseline EKG shows sinus rhythm, normal axis, normal intervals. Patient exercised on Benji protocol for a total of 10 minutes achieving 11 METS, 95% of predicted maximal heart rate without chest pain or diagnostic ST-segment depression. Baseline echo shows normal left ventricular size, wall motion and systolic function. Postexercise there is normal hyperdynamic response of all segments of myocardium noted. CONCLUSIONS: 1. Good exercise tolerance. 2. Negative stress test by EKG criteria. 3. Negative stress echo. MMODL / IJN: [id number] /
== END | disposition home or self-care (01) ==
LOC: RADNMMAIN 09:07
PROVIDERS: ATTEND Internal Medicine
DX: R07.9 Chest pain, unspecified (principal)
CPT/HCPCS: 93351

== ENCOUNTER → 2018-04-08 | Outpatient (CLI) | payer MEDICAID ==
[2018-04-08 07:40] LABS: Basophils % (A) 0 %; Eosinophils # (A) 0.2 k/uL (0-0.7); Eosinophils % (A) 2 %; HCT 43.3 % (34.0-46.0); HGB 14.6 gm/dL (11.4-16.0); Lymphocytes # (A) 1.6 k/uL (1.0-4.8); Lymphocytes % (A) 22 %; MCH 30.5 pg (25.0-35.0); MCHC 33.6 g/dL (31.0-37.0); MCV 90.7 fL (80.0-100.0); Mean Platelet Volume 7.8; Monocytes # (A) 0.4 k/uL (0-1.0); Monocytes % (A) 5 %; Neutrophils % (A) 69 %; Platelet Count 279 k/uL (150-450); RBC 4.77 m/uL (3.80-5.40); RDW 12.4 % (11.5-15.5); WBC 7.2 k/uL (3.8-10.6)
[2018-04-08 07:54] LABS: ALT 24 U/L (9-52); AST 22 U/L (14-36); Albumin 3.7 g/dL (3.5-5.0); Alkaline Phosphatase 108 U/L (38-126); Anion Gap 8 mmol/L; Blood Urea Nitrogen 11 mg/dL (7-17); Calcium 9.5 mg/dL (8.4-10.2); Carbon Dioxide 28 mmol/L (22-30); Chloride 105 mmol/L (98-107); Cholesterol 138 mg/dL (<200); Creatine Kinase 59 U/L (30-135); Glucose 106 mg/dL (74-99); HDL Cholesterol 61 mg/dL (40-60); LDL Cholesterol,Calculated 62 mg/dL (0-99); Potassium 3.9 mmol/L (3.5-5.1); Sodium 141 mmol/L (137-145); Total Bilirubin 0.8 mg/dL (0.2-1.3); Total Protein 6.6 g/dL (6.3-8.2); Triglycerides 74 mg/dL (<150)
[2018-04-08 07:56] LABS: Appearance,Urine Cloudy (Clear); Bacteria,Urine Rare /hpf; Bilirubin,Urine Negative (Negative); Blood,Urine Negative (Negative); Color,Urine Yellow; Glucose,Urine (UA) 3+ (Negative); Ketones,Urine 1+ (Negative); Leukocyte Esterase,Urine Small (Negative); Mucus,Urine Few /hpf; Nitrite,Urine Negative (Negative); Protein,Urine Trace (Negative); Specific Gravity,Urine 1.023 (1.001-1.035); Squamous Epithelial Cell,Urine 15 /hpf (0-4); Urobilinogen,Urine <2.0 mg/dL (<2.0); WBC,Urine 18 /hpf (0-5)
[2018-04-08 08:09] LABS: T4, Free (Free Thyroxine) 0.99 ng/dL (0.78-2.19)
[2018-04-08 11:20] LABS: Vitamin D 25 Hydroxy 23.2 ng/mL (30.0-100.0)
[2018-04-08 11:27] LABS: Folate, Serum 15.2 ng/mL
[2018-04-08 11:51] LABS: Gliadin AB IgA, Unit 1.8 U/mL
[2018-04-08 13:14] LABS: Hemoglobin A1C 8.1 % (4.0-6.0)
== END | disposition home or self-care (01) ==
LOC: LABWHC1 06:36
PROVIDERS: ATTEND Internal Medicine
DX: E10.9 Type 1 diabetes mellitus without complications (principal); R00.1 Bradycardia, unspecified; K58.9 Irritable bowel syndrome, unspecified
CPT/HCPCS: 36415; 80053; 80061; 81001; 82043; 82306; 82550; 82570; 82607; 82746; 83036; 83516; 84439; 84443; 85025

== ENCOUNTER 2018-05-01 11:20 | Emergency (ER) | payer MEDICAID ==
[2018-05-01 11:41] VITALS: RESP 18
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
--- NOTE | 2018-05-01 12:51 | XR ---
EXAMINATION TYPE: XR chest 2V DATE OF EXAM: 05/01/2018 COMPARISON: NONE HISTORY: Trauma and pain TECHNIQUE: Frontal and lateral views of the chest are obtained. FINDINGS: There is no focal air space opacity, pleural effusion, or pneumothorax seen. The cardiac silhouette size is within normal limits. The osseous structures are intact. Surgical clips present in the right upper quadrant. There may be a slight spinal curvature. IMPRESSION: No acute cardiopulmonary process.
--- NOTE | 2018-05-01 12:54 | XR ---
Cervical spine HISTORY: Trauma and pain 5 views of the cervical spine, comparison prior exam 06/20/2017 Cervical vertebral bodies show preserved height, stable alignment, and bone mineralization. Disc spac es are maintained. Prevertebral soft tissues are normal. Neural foramina are patent. IMPRESSION: No acute fracture or subluxation.
--- NOTE | 2018-05-01 12:56 | XR ---
Right humerus HISTORY: Trauma and pain 2 views of the right humerus Bone mineralization, joint spaces and alignment are maintained. There are overlying artifacts. IMPRESSION: No acute fracture or dislocation.
[2018-05-01 13:55] VITALS: BP 124/79; PULSE 79; TEMP 97.2
== END 2018-05-01 13:54 | disposition home or self-care (01) ==
LOC: EC 11:20
DX: S40.022A Contusion of left upper arm, initial encounter (principal); R07.81 Pleurodynia; M79.601 Pain in right arm; E11.9 Type 2 diabetes mellitus without complications; Z88.1 Allergy status to other antibiotic agents; Z88.2 Allergy status to sulfonamides; Z91.011 Allergy to milk products; Z91.018 Allergy to other foods; Z91.040 Latex allergy status; Z91.048 Other nonmedicinal substance allergy status; Z79.4 Long term (current) use of insulin; Z79.899 Other long term (current) drug therapy; Y04.0XXA Assault by unarmed brawl or fight, initial encounter; Y92.009 Unspecified place in unspecified non-institutional (private) residence as the place of occurrence of the external cause
CPT/HCPCS: 71046; 72050; 99284

== ENCOUNTER → 2018-05-31 | Outpatient (CLI) | payer MEDICAID ==
--- NOTE | 2018-06-02 14:42 | MR ---
EXAMINATION TYPE: MR shoulder RT wo con DATE OF EXAM: 05/31/2018 COMPARISON: Plain film 05/01/2018 HISTORY: Rt shoulder pain x 3 weeks, recent fall TECHNIQUE: Multiplanar, multisequence imaging of the right shoulder is performed without contrast. FINDINGS: Rotator Cuff: Intact, no rotator cuff tear. There is some minimal fluid in the subacromial subdeltoid bursa. Acromioclavicular Joint: Mild arthropathy change causing some minimal mass effect on the musculotendi nous junction of supraspinatus, distal acromion slightly downturned Glenohumeral Joint: Intact Labrum: There is cystic foci adjacent to the anterior labrum possibly representing para labral cysts, difficult to exclude labral tear Biceps Tendon: The long head of biceps is in normal location within bicipital groove. Bone marrow signal: Pseudocysts present within the humeral head. Other: No additional significant abnormality is appreciated. IMPRESSION: There may be a component of impingement, correlate. Difficult to exclude labral tear as described. Ad ditional findings above.
== END ==
LOC: RADMRIMAIN 20:40
PROVIDERS: ATTEND Internal Medicine
DX: M25.511 Pain in right shoulder (principal)

== ENCOUNTER → 2018-09-04 | Outpatient (CLI) | payer MEDICAID ==
[2018-09-04 11:41] LABS: Albumin 4.2 g/dL (3.80-4.90); Anion Gap 6.5 mmol/L (4.00-12.00); Calcium 9.4 mg/dL (8.7-10.3); Carbon Dioxide 29.5 mmol/L (21.6-31.8); Globulin 2.1 g/dL (1.6-3.3); Potassium 4.3 mmol/L (3.5-5.5); Total Bilirubin 0.9 mg/dL (0.3-1.2); Total Protein 6.3 g/dL (6.2-8.2)
[2018-09-04 13:11] LABS: Hemoglobin A1C 8.2 % (4.0-6.0)
== END | disposition home or self-care (01) ==
LOC: LABWHC1 06:30
PROVIDERS: ATTEND Internal Medicine
DX: E10.65 Type 1 diabetes mellitus with hyperglycemia (principal)
CPT/HCPCS: 36415; 80053; 80061; 82043; 82306; 82570; 83036

== ENCOUNTER → 2018-10-07 | Outpatient (CLI) | payer MEDICAID ==
[2018-10-07 17:00] LABS: T4, Free (Free Thyroxine) 0.9 ng/dL (0.80-1.80)
== END | disposition home or self-care (01) ==
LOC: LABWHC1 09:56
PROVIDERS: ATTEND Internal Medicine
DX: E06.3 Autoimmune thyroiditis (principal)
CPT/HCPCS: 36415; 84439; 84443

== ENCOUNTER → 2018-10-15 | Outpatient (CLI) | payer MEDICAID ==
[2018-10-15 14:05] VITALS: BP 112/77; PULSE 87; RESP 16; TEMP 98.1
--- NOTE | 2018-10-15 14:46 | P.PN ---
Progress Note - Text Progress Note Date: 10/15/18 Chief Complaint: left breast lump over the past 3 days HPI: this is a 38-year-old with an LMP of December 2017. The patient thinks she felt a left breast lump a few days ago. She has also some soreness in the breast. She denies any spontaneous nipple discharge. She states she will occasionally notice a drop of yellowish liquid if she squeezes the left nipple. She states the lump that she has felt is about the size of a half of a shelled peanut. She has been amenorrheic since her endometrial ablation done in December 2017. ROS: she denies fever, respiratory, cardiac, or G.I. problems. PE: Blood pressure: 112/77, height 5'1", weight 132 pounds, temperature 91, pulse 87. This is a well developed, well nourished, white female who is alert and orientedx3, in no acute distress. Breast exam: breasts are normal in appearance. There is no unusual puckering or dimpling. There is moderate fibrocystic changes throughout both breasts without a discrete breast mass. The patient states she felt a small lump at the 9 o'clock position of the left breast. No discrete masses noted, however she does have very dense breast tissue with prominent breasts glandular tissue throughout both breasts. No nipple discharges demonstrated. Axillary exam is negative bilaterally. Impression: 1. 38-year-old female with moderate fibrocystic changes of the breasts without discrete palpable breast abnormality on exam today. 2. It seems that the patient is palpating fibrocystic changes of the breast at the 9 o'clock position of the left breast. Plan: 1. We have discussed how the patient probably has hormonal cycling even though she has been amenorrheic since her endometrial ablation in December 2017. 2. She was instructed to make an appointment if she feels a greater prominence in a breast lump in the next few weeks. She will make an appointment for 2 months for a recheck at the time of her annual well woman examination Time spent with the patient: 10 minutes
== END | disposition home or self-care (01) ==
LOC: WWCWWP 12:10
PROVIDERS: ATTEND Obstetrics & Gynecology
DX: Z53.9 Procedure and treatment not carried out, unspecified reason (principal)

== ENCOUNTER → 2018-10-22 | Outpatient (CLI) | payer MEDICAID ==
[2018-10-23 10:34] LABS: Barley IgE <0.35 kU/L (<0.35); Barley IgE Class CLASS 0; Oat IgE Class CLASS 0; Rye (Food) IgE <0.35 kU/L (<0.35); Rye (Food) IgE Class CLASS 0
[2018-10-23 10:35] LABS: Gluten IgE Class CLASS 0; Hops IgE <0.35 kU/L (<0.35)
== END | disposition home or self-care (01) ==
LOC: LABWHC1 09:26
PROVIDERS: ATTEND Internal Medicine
DX: Z91.018 Allergy to other foods (principal)
CPT/HCPCS: 36415; 82785; 86003

== ENCOUNTER → 2018-11-21 | Outpatient (CLI) | payer MEDICAID ==
[2018-11-21 09:29] LABS: Anion Gap 9 mmol/L; Blood Urea Nitrogen 15 mg/dL (7-17); Calcium 9.4 mg/dL (8.4-10.2); Carbon Dioxide 25 mmol/L (22-30); Chloride 104 mmol/L (98-107); Glucose 240 mg/dL (74-99); Potassium 4.1 mmol/L (3.5-5.1); Sodium 138 mmol/L (137-145)
== END ==
LOC: LABWHC1 08:53
PROVIDERS: ATTEND Internal Medicine
DX: E10.65 Type 1 diabetes mellitus with hyperglycemia (principal)
CPT/HCPCS: 36415; 80048; 84681

== ENCOUNTER → 2019-01-28 | Outpatient (CLI) | payer MEDICAID ==
[2019-01-28 19:23] LABS: T4, Free (Free Thyroxine) 0.8 ng/dL (0.80-1.80)
== END | disposition home or self-care (01) ==
LOC: LABWHC1 13:35
PROVIDERS: ATTEND Internal Medicine
DX: E06.3 Autoimmune thyroiditis (principal)
CPT/HCPCS: 36415; 84439; 84443

== ENCOUNTER → 2019-02-07 | Outpatient (CLI) | payer MEDICAID ==
[2019-02-07 13:13] LABS: Hemoglobin A1C 7.5 % (4.0-6.0)
[2019-02-07 17:10] LABS: Cholesterol 135 mg/dL (0-200); Triglycerides <50.0 mg/dL (0.0-149.0); VLDL Calculation 9.98 mg/dL (5.00-40.00)
== END | disposition home or self-care (01) ==
LOC: LABWHC1 06:26
PROVIDERS: ATTEND Internal Medicine
DX: E10.65 Type 1 diabetes mellitus with hyperglycemia (principal)
CPT/HCPCS: 36415; 80061; 82043; 82570; 83036

== ENCOUNTER → 2019-04-30 | Outpatient (CLI) | payer MEDICAID ==
--- NOTE | 2019-04-30 15:32 | US ---
EXAMINATION TYPE: US thyroid st tissue head/neck DATE OF EXAM: 04/30/2019 COMPARISON: NONE CLINICAL HISTORY: E06.3 HASHIMOTOS, f/u nodules GLAND SIZE: Right Lobe: 4.5 x 1.2 x 1.2 cm Overall Parenchyma: heterogenous Left Lobe: 4.1 x 1.7 x 1.7 cm Overall Parenchyma: heterogeneous Isthmus Thickness: 0.2 cm NODULES RIGHT: # of nodules measured on right: 1 1. 0.5 X 0.3 x 0.4 cm hypoechoic solid nodule at the lower pole with well-defined margins. This no dule is wider than tall and shows intranodular vascularity. Prior size: 0.8 x 0.3 x 0.4 cm LEFT: # of nodules measured on left: 1 1. 1.9 X 1.2 x 1.4 cm isoechoic solid nodule at the mid pole with well-defined margins. This nodul e is taller than wide and shows intranodular vascularity. Prior size: 1.5 x 0.9 x 1.1 cm Bilateral neck scanned, no evidence of lymphadenopathy. IMPRESSION: 1. Increase in size of a hypervascular solid left thyroid nodule. Percutaneous biopsy was performed o n 07/06/2017. Correlate with results. 2. No interval growth of the subcentimeter right thyroid nodule in an overall heterogenous thyroid gl and.
== END | disposition home or self-care (01) ==
LOC: RADUSWWP 13:54
PROVIDERS: ATTEND Internal Medicine
DX: E04.2 Nontoxic multinodular goiter (principal); E06.3 Autoimmune thyroiditis
CPT/HCPCS: 76536

== ENCOUNTER → 2019-06-24 | Outpatient (CLI) | payer MEDICAID ==
--- NOTE | 2019-06-24 12:46 | MR ---
EXAMINATION TYPE: MR brain wo/w con DATE OF EXAM: 06/24/2019 COMPARISON: NONE HISTORY: Blurred vision, headaches, dizziness, neck pain TECHNIQUE: Multiplanar, multisequence images of the brain and brainstem is performed without and with IV contras t, utilizing 6 mL intravenous Gadavist . FINDINGS: Diffusion weighted images demonstrate no evidence of a recent infarct or other diffusion ab normality. There is no extra-axial fluid collection or significant white matter signal abnormality. The ventricular system and cisternal spaces are normal in size and appearance. The brain volume is age appropriate. Midline structures demonstrate normal morphology. The craniocervical junction appears within normal limits. Post contrast images demonstrate no abnormal enhancement. The dural venous sinuses appear pa tent. Some artifact distortion at level of the anterior globes is present. Visualized paranasal sinus es are clear. No suspicious opacification mastoid air cells laterally. IMPRESSION: No suspicious findings identified.
== END | disposition home or self-care (01) ==
LOC: RADMRIMAIN 11:20
PROVIDERS: ATTEND Ophthalmology
DX: G44.219 Episodic tension-type headache, not intractable (principal); H53.8 Other visual disturbances
CPT/HCPCS: 70553; A9585

== ENCOUNTER → 2019-07-23 | Outpatient (CLI) | payer MEDICAID ==
[2019-07-23 10:07] VITALS: BP 108/72; PULSE 70; RESP 16; TEMP 98
--- NOTE | 2019-07-23 11:04 | P.HPOB ---
History of Present Illness H&P Date: 07/23/19 Chief Complaint: The patient is here for her routine gynecologic exam. This is a 39-year-old with an LMP of December 2017. The patient has been amenorrheic since her endometrial ablation and tubal ligation done in December 2017. She will infrequently notice a small spot of blood after the ablation, but this is infrequent. She also noticed occasional breast tenderness so she believes she is still cycling. She denies any recent HSV outbreaks. She has been experiencing urinary symptoms for the last 1-2 weeks including urinary frequency, dysuria and voiding small amounts. She is otherwise without complaints. Review of Systems The patient's weight has been stable over the last year. She denies respiratory, cardiac, or G.I. problems. : As in the HPI. Past Medical History Past Medical History: Diabetes Mellitus, Osteoarthritis (OA), Thyroid Disorder Additional Past Medical History / Comment(s): Type 1 diabetes. Irritable bowel syndrome, raynaulds disease, colitis,hashimotos disease, cold induced urticaria. 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 History of Any Multi-Drug Resistant Organisms: None Reported Past Surgical History: Cholecystectomy, Tubal Ligation, Uterine Ablation Additional Past Surgical History / Comment(s): bunionectomy, fx ankle, wisdom teeth removed. Endometrial ablation 2017. Past Anesthesia/Blood Transfusion Reactions: Motion Sickness Additional Past Anesthesia/Blood Transfusion Reaction / Comment(s): clausterphobia Past Psychological History: No Psychological Hx Reported Smoking Status: Never smoker Past Alcohol Use History: Rare (2 per year) Past Drug Use History: None Reported Additional History: She is single and has been with her boyfriend since 2018. She works at [employer]. - Past Family History Mother Family Medical History: No Reported History Additional Family Medical History / Comment(s): . Father Family Medical History: Hyperlipidemia Additional Family Medical History / Comment(s): also aunt had thyroid cancer. Grandfather had lung cancer. Medications and Allergies Home Medications Medication Instructions Recorded Confirmed Type Dicyclomine [Bentyl] 20 mg PO QID PRN 07/23/19 07/23/19 History INSULIN LISPRO (For Pump) [humaLOG 0.01 units SQ-PUMP CONTINUOUS 07/23/19 07/23/19 History (For Pump)] Multivitamin [Multivitamins Adult 1 each PO DAILY 07/23/19 07/23/19 History Gummies] Allergies Allergy/AdvReac Type Severity Reaction Status Date / Time latex Allergy Rash/Hives Verified 07/23/19 10:07 loracarbef [From Lorabid] AdvReac Diarrhea Verified 07/23/19 10:07 Sulfa (Sulfonamide AdvReac Rash/Hives Verified 07/23/19 10:07 Antibiotics) cold allegy Allergy Rash/Hives, Uncoded 07/23/19 10:07 itching oats, milk, wheat, Allergy Unknown Uncoded 07/23/19 10:07 peanuts,eggs,soy Exam Vital Signs Temp Pulse Resp BP Pulse Ox 07/23/19 10:03 98.0 F 70 16 108/72 99 Intake and Output 07/22/19 07/23/19 07/23/19 22:59 06:59 14:59 Other: Weight 61.689 kg Height 5 feet 1 inch, weight 136 pounds, BMI 25.7. This is a well-developed well-nourished white female who is alert and oriented times 3 in no acute distress. HEENT: Within normal limits. NECK: Supple without mass or thyromegaly. CHEST AND LUNGS: Clear to auscultation. HEART: Regular rate and rhythm. BREASTS: Are without mass or discharge. The right breast is minimally tender. AXILLARY EXAM: Negative for adenopathy. BACK: Negative for CVA tenderness. ABDOMEN: Soft, nontender, without palpable masses. PELVIC EXAM: Normal external genitalia. Cervix and vagina appear normal. There i s no unusual discharge. There is no evidence of prolapse. The uterus is retroverted, nongravid size and nontender. There are no palpable adnexal masses or tenderness. RECTAL EXAM: negative for mass or tenderness. EXTREMITIES: Nontender. IMPRESSION: 1. 39-year-old female who is status post tubal ligation, with normal gynecologic exam. 2. Probable cystitis UTI with urinary frequency, dysuria with small voids. PLAN: 1. Pap smear was performed. 2. Self breast awareness was discussed with the patient. 3. Clean catch midstream urinalysis and urine culture will be sent. The patient will be treated empirically for a UTI with Macrobid. She is to take 1 by mouth twice a day 7 days. The patient also states she can get yeast infections easily when ever she takes antibiotics. Diflucan 150 mg by mouth 1 if she develops yeast infection symptoms. These 2 prescriptions will be sent to [facility] at [facility]. 4. The patient was asking if tubal ligation and endometrial ablation would be considered reversible. She states her boyfriend was asking about this since he does not have children. She understands that tubal sterilization can possibly be reversed, however, with the endometrial ablation should be considered dangerous and therefore, I have strongly recommended that she not look into any type of reversing of the sterilization procedure. We discussed how placenta accreta can be a very dangerous situation and therefore she should not get after these types of procedures. 5. She was advised to return in one year for her annual well woman exam.
[2019-07-23 14:45] LABS: Appearance,Urine Clear (Clear); Bilirubin,Urine Negative (Negative); Blood,Urine Negative (Negative); Color,Urine Yellow; Glucose,Urine (UA) 4+ (Negative); Ketones,Urine Negative (Negative); Leukocyte Esterase,Urine Negative (Negative); Nitrite,Urine Negative (Negative); Protein,Urine Negative (Negative); Specific Gravity,Urine 1.033 (1.001-1.035); Urobilinogen,Urine <2.0 mg/dL (<2.0)
== END | disposition home or self-care (01) ==
LOC: LABWHC1 09:53
PROVIDERS: ATTEND Obstetrics & Gynecology
DX: R35.0 Frequency of micturition (principal); R30.0 Dysuria
CPT/HCPCS: 81003; 87086

== ENCOUNTER → 2019-07-23 | Outpatient (CLI) | payer MEDICAID ==
--- NOTE | 2019-07-23 13:30 | US ---
EXAMINATION TYPE: US thyroid st tissue head/neck DATE OF EXAM: 07/23/2019 COMPARISON: US 04/30/19 CLINICAL HISTORY: E06.3 HASHIMOTOS . GLAND SIZE: Right Lobe: 4.2 x 1.1 x 1.3 cm Overall Parenchyma: heterogenous Left Lobe: 4.3 x 1.8 x 1.4 cm Overall Parenchyma: heterogeneous Isthmus Thickness: 0.3 cm NODULES RIGHT: # of nodules measured on right: 0 LEFT: # of nodules measured on left: 1 1. 2.0 X 1.3 x 1.4 cm hypoechoic solid nodule at the mid pole with well-defined margins; . This no dule is wider than tall and shows intranodular vascularity. Prior size: 1.9 x 1.2 x 1.4 cm ISTHMUS: # of nodules measured in the isthmus: 0 Bilateral neck scanned, no evidence of lymphadenopathy. IMPRESSION: Similar size of the left thyroid nodule. Continued surveillance is recommended with repeat ultrasound in 6-12 months.
== END ==
LOC: RADUSWWP 11:15
PROVIDERS: ATTEND Internal Medicine
DX: E04.1 Nontoxic single thyroid nodule (principal)
CPT/HCPCS: 76536

== ENCOUNTER → 2019-08-29 | Outpatient (CLI) | payer MEDICAID ==
[2019-08-29 15:19] LABS: HCT 45.7 % (34.0-46.0); HGB 15.2 gm/dL (11.4-16.0); MCHC 33.2 g/dL (31.0-37.0); MCV 93.4 fL (80.0-100.0); Mean Platelet Volume 8.6; Platelet Count 317 k/uL (150-450); RBC 4.89 m/uL (3.80-5.40); RDW 12.2 % (11.5-15.5); WBC 7.8 k/uL (3.8-10.6)
[2019-08-29 17:39] LABS: Erythrocyte Sedimentation Rate 8 mm/hr (0-20)
[2019-08-29 18:59] LABS: Thyroid Peroxidase Antibodies 141.6 U/mL (0.0-60.0)
[2019-08-29 19:34] LABS: ALT 15 U/L (8-44); AST 24 U/L (13-35); African American GFR (CKD) 94.7 (60.0-200.0); Albumin/Globulin Ratio 1.76 (1.60-3.17); Alkaline Phosphatase 139 U/L (41-126); BUN/Creat Ratio 12.22 Ratio (12.00-20.00); C Reactive Protein <0.4 mg/dL (0.0-0.8); Calcium 9.5 mg/dL (8.7-10.3); Carbon Dioxide 27.1 mmol/L (21.6-31.8); Chloride 104 mmol/L (96-109); Globulin 2.5 g/dL (1.6-3.3); Glucose 204 mg/dL (70-110); Non-African American GFR(CKD) 81.7 (60.0-200.0); Potassium 3.9 mmol/L (3.5-5.5); Rheumatoid Factor, Qnt 6 IU/mL (0-15); Sodium 139 mmol/L (135-145); Total Bilirubin 0.6 mg/dL (0.3-1.2); Total Protein 6.9 g/dL (6.2-8.2)
[2019-08-29 19:50] LABS: Anti-Smith Ab Interp NEGATIVE (NEGATIVE); Cyclic Citrull Pep IgG Unit 3.6 U/mL; Cyclic Citrullinated Pep IgG POSITIVE (NEGATIVE); DNA Double-Stranded NEGATIVE (NEGATIVE)
== END | disposition home or self-care (01) ==
LOC: LABWHC1 14:13
PROVIDERS: ATTEND Anesthesiology
DX: M35.00 Sjogren syndrome, unspecified (principal); E06.3 Autoimmune thyroiditis; R53.82 Chronic fatigue, unspecified
CPT/HCPCS: 36415; 80053; 84439; 84443; 85027; 85652; 86038; 86140; 86200; 86225; 86235; 86376; 86431

== ENCOUNTER → 2019-10-07 | Outpatient (CLI) | payer MEDICAID ==
[2019-10-07 16:43] LABS: African American GFR (CKD) 109.2 (60.0-200.0); Albumin 4.2 g/dL (3.80-4.90); Albumin/Globulin Ratio 1.91 (1.60-3.17); Anion Gap 6.9 mmol/L (4.00-12.00); BUN/Creat Ratio 11.25 Ratio (12.00-20.00); Calcium 9.6 mg/dL (8.7-10.3); Carbon Dioxide 27.1 mmol/L (21.6-31.8); Globulin 2.2 g/dL (1.6-3.3); Non-African American GFR(CKD) 94.2 (60.0-200.0); Potassium 4.2 mmol/L (3.5-5.5); Total Bilirubin 0.4 mg/dL (0.2-1.2); Total Protein 6.4 g/dL (6.2-8.2)
[2019-10-07 18:14] LABS: Urine Creatinine 89.9 mg/dL
== END ==
LOC: LABWHC1 10:41
PROVIDERS: ATTEND Internal Medicine Endocrinology, Diabetes & Metabolism
DX: E10.65 Type 1 diabetes mellitus with hyperglycemia (principal)
CPT/HCPCS: 36415; 80053; 82024; 82043; 82533; 82570; 84443; 86376

== ENCOUNTER → 2019-10-08 | Outpatient (CLI) | payer MEDICAID ==
[2019-10-08 12:23] LABS: Chol/HDL Ratio 2.31; Cholesterol 157 mg/dL (0-200); Triglycerides <50.0 mg/dL (0.0-149.0)
== END | disposition home or self-care (01) ==
LOC: LABWHC1 06:50
PROVIDERS: ATTEND Internal Medicine Endocrinology, Diabetes & Metabolism
DX: E10.65 Type 1 diabetes mellitus with hyperglycemia (principal)
CPT/HCPCS: 36415; 80061

== ENCOUNTER 2020-01-23 06:08 | Observation (INO) | payer MEDICAID ==
[2020-01-23] MEDS ORDERED: SODIUM CHLORIDE 0.9% 1,000 ML IV STA ×2 (06:21→07:54)
[2020-01-23] MEDS ORDERED: KETOROLAC 30 MG/ML 1 ML VIAL IVP STA (06:22)
[2020-01-23] MEDS ORDERED: LORazepam 1 MG TAB PO STA (06:22)
--- NOTE | 2020-01-23 06:23 | ED ---
General Adult HPI - General Chief complaint: Chest Pain Stated complaint: Chest pain Time Seen by Provider: 01/23/20 06:11 Source: patient, EMS, RN notes reviewed Mode of arrival: EMS Limitations: no limitations - History of Present Illness Initial comments: 39-year-old female with a past medical history of type 1 diabetes, irritable bowel syndrome, colitis, Bailey disease presents to the emergency department for a chief complaint of chest pain. Patient has had chest pain for the past 2 hours. Patient states the pain is a sharp pain in the bottom of her chest and radiates under her breast. Patient states that looking down and sitting up wors en her pain. Patient states symptoms taking deep breaths worsens the pain. Patient denies shortness of breath. Patient states she has been under a lot of stress lately but thought it might have been improving in the past 2 days. Patient denies smoking history. Denies any cardiac history. Denies history of hypercholesterol or high blood pressure.Patient has no other complaints at this time including shortness of breath, abdominal pain, nausea or vomiting, headache, or visual changes. - Related Data Home Medications Medication Instructions Recorded Confirmed Dicyclomine [Bentyl] 20 mg PO QID PRN 07/23/19 07/23/19 INSULIN LISPRO (For Pump) [humaLOG 0.01 units SQ-PUMP CONTINUOUS 07/23/19 07/23/19 (For Pump)] Multivitamin [Multivitamins Adult 1 each PO DAILY 07/23/19 07/23/19 Gummies] Previous Rx's Medication Instructions Recorded Fluconazole [Diflucan] 150 mg PO DAILY #1 tab 07/23/19 Nitrofurantoin Monohyd/M-Cryst 100 mg PO Q12HR 7 Days #14 cap 07/23/19 [Macrobid] Allergies Allergy/AdvReac Type Severity Reaction Status Date / Time latex Allergy Rash/Hives Verified 07/23/19 10:07 loracarbef [From Lorabid] AdvReac Diarrhea Verified 07/23/19 10:07 Sulfa (Sulfonamide AdvReac Rash/Hives Verified 07/23/19 10:07 Antibiotics) cold allegy Allergy Rash/Hives, Uncoded 07/23/19 10:07 itching oats, milk, wheat, Allergy Unknown Uncoded 07/23/19 10:07 peanuts,eggs,soy Review of Systems ROS Statement: Those systems with pertinent positive or pertinent negative responses have been documented in the HPI. ROS Other: All systems not noted in ROS Statement are negative. Past Medical History Past Medical History: Diabetes Mellitus, Fibromyalgia, Osteoarthritis (OA), Rheumatoid Arthritis (RA), Thyroid Disorder Additional Past Medical History / Comment(s): Type 1 diabetes. Irritable bowel syndrome, raynaulds disease, colitis,hashimotos disease, cold induced urticaria. 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 History of Any Multi-Drug Resistant Organisms: None Reported Past Surgical History: Cholecystectomy, Tubal Ligation, Uterine Ablation Additional Past Surgical History / Comment(s): bunionectomy, fx ankle, wisdom teeth removed. Endometrial ablation 2018. Past Anesthesia/Blood Transfusion Reactions: Motion Sickness Additional Past Anesthesia/Blood Transfusion Reaction / Comment(s): clausterphobia Past Psychological History: No Psychological Hx Reported Smoking Status: Never smoker Past Alcohol Use History: Rare Past Drug Use History: None Reported - Past Family History Mother Family Medical History: No Reported History Additional Family Medical History / Comment(s): . Father Family Medical History: Hyperlipidemia Additional Family Medical History / Comment(s): also aunt had thyroid cancer. Grandfather had lung cancer. General Exam Limitations: no limitations General appearance: alert, in no apparent distress Head exam: Present: atraumatic, normocephalic, normal inspection Eye exam: Present: normal appearance, PERRL, EOMI. Absent: scleral icterus, conjunctival injection, periorbital swelling ENT exam: Present: normal exam, mucous membranes moist Neck exam: Present: normal inspection, full ROM. Absent: tenderness, meningismu s, lymphadenopathy Respiratory exam: Present: normal lung sounds bilaterally, other (Hyperventilating). Absent: respiratory distress, wheezes, rales, rhonchi, stridor Cardiovascular Exam: Present: regular rate, normal rhythm, normal heart sounds, other. Absent: systolic murmur, diastolic murmur, rubs, gallop, clicks GI/Abdominal exam: Present: soft, normal bowel sounds. Absent: distended, tenderness, guarding, rebound, rigid Neurological exam: Present: alert Psychiatric exam: Present: normal affect, normal mood Course Vital Signs 01/23/20 01/23/20 01/23/20 06:15 06:16 07:53 Temperature 97.8 F Pulse Rate 100 80 Pulse Rate [ 89 Pulse Oximetery ] Respiratory 24 Rate Blood Pressure 111/74 99/66 O2 Sat by Pulse 100 99 Oximetry 01/23/20 09:03 Temperature Pulse Rate Pulse Rate [ Pulse Oximetery ] Respiratory Rate Blood Pressure 100/71 O2 Sat by Pulse Oximetry EKG Findings - EKG Comments: EKG Findings:: Normal sinus rhythm, ventricular rate 93, NE interval 128, QTc 455 Medical Decision Making - Medical Decision Making Vitals are stable. Patient's blood pressure is around 100 systolic which she states is normal for her. HPI and physical exam as documented. Chest pain is atypical with typical features. Pain is reproducible on exam. CBC is unremarkable. CMP unremarkable. Amylase and lipase are negative. EKG shows a normal sinus rhythm. Troponin is negative. D-dimer is within normal limits. Patient was given pain medication which did help significantly however pain did return. However patient is much more calm at this time. We tried a GI cocktail which did not seem to help with patient's pain. Dr Jeff also examined patient. Discussed this case with Dr. Goodman. Patient will be kept in observation for trending troponin. - Lab Data Result diagrams: 01/23/20 06:44 01/23/20 06:44 Lab Results 01/23/20 01/23/20 01/23/20 Range/Units 06:44 06:44 06:44 WBC 9.5 (3.8-10.6) k/uL RBC 4.76 (3.80-5.40) m/uL Hgb 14.8 (11.4-16.0) gm/dL Hct 43.6 (34.0-46.0) % MCV 91.6 (80.0-100.0) fL MCH 31.2 (25.0-35.0) pg MCHC 34.1 (31.0-37.0) g/dL RDW 12.7 (11.5-15.5) % Plt Count 273 (150-450) k/uL Neutrophils % 81 % Lymphocytes % 12 % Monocytes % 3 % Eosinophils % 3 % Basophils % 0 % Neutrophils # 7.7 (1.3-7.7) k/uL Lymphocytes # 1.1 (1.0-4.8) k/uL Monocytes # 0.3 (0-1.0) k/uL Eosinophils # 0.3 (0-0.7) k/uL Basophils # 0.0 (0-0.2) k/uL PT 10.0 (9.0-12.0) sec INR 1.0 (<1.2) APTT 22.1 (22.0-30.0) sec D-Dimer 0.33 (<0.60) mg/L FEU Sodium 138 (137-145) mmol/L Potassium 3.5 (3.5-5.1) mmol/L Chloride 108 H (98-107) mmol/L Carbon Dioxide 22 (22-30) mmol/L Anion Gap 8 mmol/L BUN 7 (7-17) mg/dL Creatinine 0.63 (0.52-1.04) mg/dL Est GFR (CKD-EPI)AfAm >90 (>60 ml/min/1.73 sqM) Est GFR (CKD-EPI)NonAf >90 (>60 ml/min/1.73 sqM) Glucose 203 H (74-99) mg/dL Calcium 9.6 (8.4-10.2) mg/dL Magnesium 1.8 (1.6-2.3) mg/dL Total Bilirubin 0.5 (0.2-1.3) mg/dL AST 41 H (14-36) U/L ALT 21 (4-34) U/L Alkaline Phosphatase 182 H (38-126) U/L Troponin I (0.000-0.034) ng/mL Total Protein 7.4 (6.3-8.2) g/dL Albumin 4.1 (3.5-5.0) g/dL Amylase (30-110) U/L Lipase (23-300) U/L 01/23/20 01/23/20 Range/Units 06:44 06:44 WBC (3.8-10.6) k/uL RBC (3.80-5.40) m/uL Hgb (11.4-16.0) gm/dL Hct (34.0-46.0) % MCV (80.0-100.0) fL MCH (25.0-35.0) pg MCHC (31.0-37.0) g/dL RDW (11.5-15.5) % Plt Count (150-450) k/uL Neutrophils % % Lymphocytes % % Monocytes % % Eosinophils % % Basophils % % Neutrophils # (1.3-7.7) k/uL Lymphocytes # (1.0-4.8) k/uL Monocytes # (0-1.0) k/uL Eosinophils # (0-0.7) k/uL Basophils # (0-0.2) k/uL PT (9.0-12.0) sec INR (<1.2) APTT (22.0-30.0) sec D-Dimer (<0.60) mg/L FEU Sodium (137-145) mmol/L Potassium (3.5-5.1) mmol/L Chloride (98-107) mmol/L Carbon Dioxide (22-30) mmol/L Anion Gap mmol/L BUN (7-17) mg/dL Creatinine (0.52-1.04) mg/dL Est GFR (CKD-EPI)AfAm (>60 ml/min/1.73 sqM) Est GFR (CKD-EPI)NonAf (>60 ml/min/1.73 sqM) Glucose (74-99) mg/dL Calcium (8.4-10.2) mg/dL Magnesium (1.6-2.3) mg/dL Total Bilirubin (0.2-1.3) mg/dL AST (14-36) U/L ALT (4-34) U/L Alkaline Phosphatase (38-126) U/L Troponin I <0.012 (0.000-0.034) ng/mL Total Protein (6.3-8.2) g/dL Albumin (3.5-5.0) g/dL Amylase 64 (30-110) U/L Lipase 139 (23-300) U/L Disposition Clinical Impression: Chest pain Disposition: ADMITTED IP TO THIS HOSP Condition: Fair Is patient prescribed a controlled substance at d/c from ED?: No Referrals: Uziel Goodman MD [Primary Care Provider] - 1-2 days Time of Disposition: 09:14
[2020-01-23 06:58] LABS: Basophils % (A) 0 %; Eosinophils # (A) 0.3 k/uL (0-0.7); Eosinophils % (A) 3 %; HCT 43.6 % (34.0-46.0); HGB 14.8 gm/dL (11.4-16.0); Lymphocytes # (A) 1.1 k/uL (1.0-4.8); Lymphocytes % (A) 12 %; MCH 31.2 pg (25.0-35.0); MCHC 34.1 g/dL (31.0-37.0); MCV 91.6 fL (80.0-100.0); Mean Platelet Volume 8.3; Monocytes # (A) 0.3 k/uL (0-1.0); Monocytes % (A) 3 %; Neutrophils # (A) 7.7 k/uL (1.3-7.7); Neutrophils % (A) 81 %; Platelet Count 273 k/uL (150-450); RBC 4.76 m/uL (3.80-5.40); RDW 12.7 % (11.5-15.5); WBC 9.5 k/uL (3.8-10.6)
[2020-01-23 07:08] LABS: ALT 21 U/L (4-34); AST 41 U/L (14-36); African American GFR (CKD) >90 (>60 ml/min/1.73 sqM); Albumin 4.1 g/dL (3.5-5.0); Alkaline Phosphatase 182 U/L (38-126); Anion Gap 8 mmol/L; Blood Urea Nitrogen 7 mg/dL (7-17); Calcium 9.6 mg/dL (8.4-10.2); Carbon Dioxide 22 mmol/L (22-30); Chloride 108 mmol/L (98-107); Glucose 203 mg/dL (74-99); Magnesium 1.8 mg/dL (1.6-2.3); Non-African American GFR(CKD) >90 (>60 ml/min/1.73 sqM); Potassium 3.5 mmol/L (3.5-5.1); Sodium 138 mmol/L (137-145); Total Bilirubin 0.5 mg/dL (0.2-1.3); Total Protein 7.4 g/dL (6.3-8.2)
[2020-01-23 07:13] LABS: D-Dimer 0.33 mg/L FEU (<0.60); Partial Thromboplastin Time 22.1 sec (22.0-30.0)
--- NOTE | 2020-01-23 07:13 | XR ---
EXAMINATION TYPE: XR chest 2V DATE OF EXAM: 01/23/2020 COMPARISON: Chest x-ray May 01, 2018. HISTORY: Chest pain today. TECHNIQUE: Frontal and lateral views of the chest are obtained. FINDINGS: There is persistent mild biapical pleural/parenchymal scarring. There is no focal air spac e opacity, pleural effusion, or pneumothorax seen. The cardiac silhouette size is within normal limi ts. The osseous structures are intact. Cholecystectomy clips are redemonstrated. IMPRESSION: No acute process. No significant change from prior.
[2020-01-23] MEDS ORDERED: ONDANSETRON 4 MG/2 ML VIAL IVP STA (07:54)
[2020-01-23 08:05] LABS: Amylase 64 U/L (30-110)
[2020-01-23] MEDS ORDERED: MAG HYDROX/AL HYDROX/SIMETH 30 ML, HYOSCYAMINE ELIXIR 10 ML, LIDOCAINE VISCOUS 2% 10 ML PO STA ×3 (08:36)
[2020-01-23] MEDS ORDERED: ASPIRIN 81 MG PO STA (09:14)
[2020-01-23] MEDS ORDERED: KETOROLAC 30 MG/ML 1 ML VIAL IVP PRN (09:17)
[2020-01-23] MEDS ORDERED: MORPHINE SULFATE 2 MG/ML SYRINGE IVP PRN (09:17)
[2020-01-23] MEDS ORDERED: DICYCLOMINE 20 MG TAB PO PRN (11:28)
[2020-01-23] MEDS ORDERED: INSULIN LISPRO (For Pump) 100 UNIT/ML VIAL SQ-PUMP SCH (11:30)
--- NOTE | 2020-01-23 15:47 | P.HPIM ---
History of Present Illness H&P Date: 01/23/20 Chief Complaint: Chest pain 39-year-old female one of my patient with a previous medical history significant for diabetes mellitus type 1 currently on insulin pump, fibromyalgia,anxiety disorder, irritable bowel syndrome, post traumatic stress disorder, Rheumatoid arthritis, possible lupus,patient was seen in my office a few days ago because of increased sore throat associated with low-grade temperature and minimal cough she was started on Z-Janes she took 2 pills of that and she was doing better she woke up at 5:00 in the morning today with the significant epigastric upper chest pain radiating up to the neck that woke her up from sleep and radiating to the back as well she could not catch her breath at that time and she could barely walk she ended up calling her parents and she decided to come to the ER for evaluation patient was complaining of some numb ness feeling around her legs that comes and goes, she was seen in the ER had a twelve-lead EKG that showed normal sinus rhythm without acute ST-T wave changes, her laboratory evaluation basically came back negative troponin came back negative 2, however because of the presentation patient was admitted to the hospital for evaluation by cardiology, patient stated that she did not eat much last night she had a Powerade and the only new medication that she took the day before was her Z-Janes, patient is denying any fever or chills at this time she has no dysuria she has no costovertebral tenderness, she was complaining of left lower extremity cramps, patient appeared a bit somewhat nauseated but she was complaining of abdominal pain as well, patient was admitted for evaluation and she will have an echocardiogram for evaluation of her LV function . Review of Systems Constitutional: Denies anorexia, Denies chronic headaches, Denies lethargy, Denies malaise, Denies sweats, Denies weakness, Denies weight gain Eyes: denies blurred vision, denies bulging eye, denies decreased vision Ears: deny: decreased hearing Ears, nose, mouth and throat: Denies dysphagia, Denies neck lump, Denies sore throat Cardiovascular: Reports chest pain, Denies decreased exercise tolerance, Denies dyspnea on exertion, Denies irregular heart beat, Denies leg edema, Denies rapid heart beat, Denies shortness of breath, Denies syncope Respiratory: Denies congestion, Denies cough, Denies cough with sputum, Denies home oxygen, Denies sleep apnea, Denies snoring, Denies wheezing Gastrointestinal: Reports abdominal pain, Reports excessive gas, Reports nausea, Denies bloating, Denies change in bowel habits, Denies heartburn, Denies hematemesis, Denies jaundice, Denies loss of appetite, Denies melena, Denies vomiting Genitourinary: Denies dysuria, Denies nocturia Musculoskeletal: Denies myalgias Musculoskeletal: absent: ankle pain, ankle stiffness, ankle swelling, elbow pain, elbow stiffness, elbow swelling, foot pain, foot stiffness, foot swelling, hand pain, hand stiffness, hand swelling, hip pain, hip stiffness, hip swelling, knee pain, knee stiffness, knee swelling, shoulder pain, shoulder stiffness, shoulder swelling, wrist pain, wrist stiffness, wrist swelling Integumentary: Denies pruritus, Denies rash Neurological: Denies numbness, Denies weakness Psychiatric: Denies anxiety, Denies depression Endocrine: Denies fatigue, Denies weight change Past Medical History Past Medical History: Chest Pain / Angina, Diabetes Mellitus, Eye Disorder, Fibromyalgia, Rheumatoid Arthritis (RA), Thyroid Disorder Additional Past Medical History / Comment(s): Type 1 diabetes. Irritable bowel syndrome, Cold Uticaria disease, hashimotos disease, Genital HSV in 2015 and HPV in the past. History of Any Multi-Drug Resistant Organisms: None Reported Past Surgical History: Cholecystectomy, Tubal Ligation, Uterine Ablation Additional Past Surgical History / Comment(s): bunionectomy, fx ankle, wisdom teeth removed. Endometrial ablation 2018. Past Anesthesia/Blood Transfusion Reactions: Motion Sickness Additional Past Anesthesia/Blood Transfusion Reaction / Comment(s): clausterphobia Past Psychological History: Anxiety, Depression, PTSD Smoking Status: Never smoker Past Alcohol Use History: Rare Past Drug Use History: None Reported - Past Family History Brother(s) Family Medical History: Asthma (Patient has 2 brothers one of them with asthma.) Son(s) Family Medical History: Diabetes Mellitus (One son with diabetes mellitus type 1.) Mother Family Medical History: Fibromyalgia (Mother 6-year-old with history of fibromyalgia.) Additional Family Medical History / Comment(s): arthritis her maternal gran dfather from [place] at age of 40. Father Family Medical History: Hyperlipidemia (Father is 65-year-old with history of hyperlipidemia.) Additional Family Medical History / Comment(s): also aunt had thyroid cancer. Grandfather had lung cancer. Medications and Allergies Home Medications Medication Instructions Recorded Confirmed Type INSULIN LISPRO (For Pump) [humaLOG 0.01 units SQ-PUMP CONTINUOUS 07/23/19 01/23/20 History (For Pump)] Azithromycin [Zithromax Z-pack] See Taper PO DIRECTED 01/23/20 01/23/20 History DULoxetine HCL [Cymbalta] 30 mg PO DAILY 01/23/20 01/23/20 History Dicyclomine [Bentyl] 20 mg PO DAILY PRN 01/23/20 01/23/20 History Nortriptyline [Pamelor] 25 mg PO AC-SUPPER 01/23/20 01/23/20 History Allergies Allergy/AdvReac Type Severity Reaction Status Date / Time latex Allergy Rash/Hives Verified 01/23/20 09:54 Sulfa (Sulfonamide Allergy Rash/Hives Verified 01/23/20 09:54 Antibiotics) Beef Containing Products AdvReac Unknown Verified 01/23/20 09:54 [Beef] egg AdvReac Unknown Verified 01/23/20 09:54 loracarbef [From Lorabid] AdvReac Diarrhea Verified 01/23/20 09:54 Milk Containing Products AdvReac Unknown Verified 01/23/20 09:54 oats AdvReac Unknown Verified 01/23/20 09:54 orange juice [[place]] AdvReac Unknown Verified 01/23/20 09:54 peanut AdvReac Unknown Verified 01/23/20 09:54 Pork/Porcine Containing AdvReac Unknown Verified 01/23/20 09:54 Products [Pork] soy AdvReac Unknown Verified 01/23/20 09:54 wheat AdvReac Unknown Verified 01/23/20 09:54 cold allegy Allergy Rash/Hives, Uncoded 01/23/20 09:54 itching Physical Exam Vitals: Vital Signs Temp Pulse Pulse Resp BP BP Pulse Ox 01/23/20 12:34 98.3 F 75 18 105/74 99 01/23/20 12:00 97.6 F 01/23/20 11:56 78 16 102/69 100 01/23/20 09:03 100/71 01/23/20 07:53 80 99/66 99 01/23/20 06:16 89 01/23/20 06:15 97.8 F 100 24 111/74 100 Intake and Output 01/23/20 01/23/20 01/23/20 06:59 14:59 22:59 Other: Weight 61.235 kg 61.235 kg HEENT: Head is atraumatic, normocephalic, pupils were equal round reactive to light and accommodation, extraocular muscle movement were intact. Neck: Supple, no JVP, no carotid bruit. Chest: Clear to auscultation bilaterally there is no crackles no wheezes no chest wall tenderness no intercostal retractions. Heart: First heart sound is depressed, second heart sounds normal, there is no gallop or murmur. Abdomen: Soft mild tenderness to the epigastric area no rebound or guarding positive bowel sounds there is no hepatosplenomegaly. Extremities: There is no edema, no calf tenderness, dorsalis pedis +2 bilaterally. Neurologic examination: Patient is awake alert and oriented 3, cranial nerves II-12 appear grossly intact, muscle power 5 out of 5 in upper and lower extremities bilaterally, deep tendon reflexes were normal. Results CBC & Chem 7: 01/23/20 06:44 01/23/20 06:44 Labs: Abnormal Lab Results - Last 24 Hours (Table) 01/23/20 Range/Units 06:44 Chloride 108 H (98-107) mmol/L Glucose 203 H (74-99) mg/dL AST 41 H (14-36) U/L Alkaline Phosphatase 182 H (38-126) U/L Thrombosis Risk Factor Assmnt - DVT/VTE Prophylaxis DVT/VTE Prophylaxis: Pharmacologic Prophylaxis ordered, Mechanical Prophylaxis ordered - Choose All That Apply Any of the Below Risk Factors Present?: No Other Risk Factors: No Other congenital or acquired thrombophilia - If yes, enter type in comment: No Thrombosis Risk Factor Assessment Level: Very Low Risk Assessment and Plan Assessment: Assessment and plan: 1. Chest pain likely noncardiac . patient did have 2 cardiac enzymes were negative, 12-lead EKG did not show any evidence of acute changes, we will obtain echocardiogram for evaluation of her LV function, if her ultrasound is normal patient can be discharged home with follow-up with cardiology as an outpatient, we will monitor the patient very closely continue aspirin for now 325 mg once every day, I believe her chest pain is GI related we will start her on Bentyl at this time and monitor the patient very closely. 2. Diabetes mellitus type 1. Patient is to continue with consistent carbohydrate diet, she is to continue to use her insulin pump, monitor her blood glucose level very closely. 3. Fibromyalgia. we will contiue with Cymbalta 30 mg orally daily. 4. Rheumatoid arthritis and possible lupus. currently is being worked up by Rheumatology . 5. Anxiety disorder. Continue nortriptyline 25 mg orally bedtime. 6. Depression with post traumatic stress disorder. Continue Cymbalta 30 mg orally once every day. 7. Recent pharyngitis. Continue patient on Zithromax to finish 4 more days. 8. DVT prophylaxis. Early ambulation. 9. GI prophylaxis. Continue Protonix 40 mg orally once every day. 10. Observation . 11. Patient is full code.
[2020-01-23 16:56] LABS: Glucose,Whole Blood 140 mg/dL (75-99)
[2020-01-23] MEDS ORDERED: NORTRIPTYLINE 25 MG CAP PO SCH (17:30)
[2020-01-24 06:11] LABS: Glucose,Whole Blood 86 mg/dL (75-99)
[2020-01-24] MEDS ORDERED: PANTOPRAZOLE 40 MG TABLET PO SCH (07:30)
--- NOTE | 2020-01-24 07:50 | P.CRDCN ---
History of Present Illness History of present illness: This is Dr. Cramer dictating a consult on this patient The patient was interviewed and examined IMPRESSION / ASSESSMENT: 39-year-old female admitted with chest discomfort for 3 normal troponins Normal d-dimer Pain sounds musculoskeletal Toradol helped the pain PLAN: From a cardiac standpoint outpatient cardiac workup Continue current medications 2-D echo and Doppler study HPI 39-year-old female presented with chest discomfort for 2 hours sharp and the bottle for chest radiates under her breast Gets worse when she takes a deep breath Short of breath and chest discomfort for the last one year, with exertion History of present rest and was woken of the discomfort ROS: No fever chills or rigors, no cough, phlegm or expectoration, no nausea, vomiting or diarrhea, no hematuria, dysuria, no musculoskeletal complaints, no strokes or seizures, no skin lesions. EXAMINATION: Normal blood pressure afebrile normal heart rates Breath sounds are clear no rhonchi no crackles Heart sounds are normal Abdomen soft Extremities warm Chest wall tenderness and upper back tenderness Normal blood pressures REVIEW OF LABS, ECG & MEDICAL DATA Twelve-lead ECG shows T-wave inversions in lead 3 and aVF Chest x-ray does not show any acute process 3 normal troponins Coronavirus not detected Hemoglobin 14.8 white count normal Elevated glucose Sodium 138 potassium 3.5 normal kidney function Lipase and amylase normal Past Medical History Past Medical History: Chest Pain / Angina, Diabetes Mellitus, Eye Disorder, Fibromyalgia, Rheumatoid Arthritis (RA), Thyroid Disorder Additional Past Medical History / Comment(s): Type 1 diabetes. Irritable bowel syndrome, Cold Uticaria disease, hashimotos disease, Genital HSV in 2015 and HPV in the past. History of Any Multi-Drug Resistant Organisms: None Reported Past Surgical History: Cholecystectomy, Tubal Ligation, Uterine Ablation Additional Past Surgical History / Comment(s): bunionectomy, fx ankle, wisdom teeth removed. Endometrial ablation 2018. Past Anesthesia/Blood Transfusion Reactions: Motion Sickness Additional Past Anesthesia/Blood Transfusion Reaction / Comment(s): clausterphobia Past Psychological History: Anxiety, Depression, PTSD Smoking Status: Never smoker Past Alcohol Use History: Rare Past Drug Use History: None Reported - Past Family History Brother(s) Family Medical History: Asthma (Patient has 2 brothers one of them with asthma.) Son(s) Family Medical History: Diabetes Mellitus (One son with diabetes mellitus type 1.) Mother Family Medical History: Fibromyalgia (Mother 6-year-old with history of fibromyalgia.) Additional Family Medical History / Comment(s): arthritis her maternal grandfather from [place] at age of 40. Father Family Medical History: Hyperlipidemia (Father is 65-year-old with history of hyperlipidemia.) Additional Family Medical History / Comment(s): also aunt had thyroid cancer. Grandfather had lung cancer. Medications and Allergies Home Medications Medication Instructions Recorded Confirmed Type INSULIN LISPRO (For Pump) [humaLOG 0.01 units SQ-PUMP CONTINUOUS 07/23/19 01/23/20 History (For Pump)] Azithromycin [Zithromax Z-pack] See Taper PO DIRECTED 01/23/20 01/23/20 History DULoxetine HCL [Cymbalta] 30 mg PO DAILY 01/23/20 01/23/20 History Dicyclomine [Bentyl] 20 mg PO DAILY PRN 01/23/20 01/23/20 History Nortriptyline [Pamelor] 25 mg PO AC-SUPPER 01/23/20 01/23/20 History Allergies Allergy/AdvReac Type Severity Reaction Status Date / Time latex Allergy Rash/Hives Verified 01/23/20 09:54 Sulfa (Sulfonamide Allergy Rash/Hives Verified 01/23/20 09:54 Antibiotics) Beef Containing Products AdvReac Unknown Verified 01/23/20 09:54 [Beef] egg AdvReac Unknown Verified 01/23/20 09:54 loracarbef [From Lorabid] AdvReac Diarrhea Verified 01/23/20 09:54 Milk Containing Products AdvReac Unknown Verified 01/23/20 09:54 oats AdvReac Unknown Verified 01/23/20 09:54 orange juice [[place]] AdvReac Unknown Verified 01/23/20 09:54 peanut AdvReac Unknown Verified 01/23/20 09:54 Pork/Porcine Containing AdvReac Unknown Verified 01/23/20 09:54 Products [Pork] soy AdvReac Unknown Verified 01/23/20 09:54 wheat AdvReac Unknown Verified 01/23/20 09:54 cold allegy Allergy Rash/Hives, Uncoded 01/23/20 09:54 itching Physical Exam Vitals: Vital Signs Temp Pulse Pulse Resp BP BP BP 01/24/20 04:00 98.3 F 74 16 102/67 01/24/20 00:00 98.2 F 82 16 106/73 01/23/20 23:00 74 16 01/23/20 20:00 98.0 F 74 16 96/67 01/23/20 19:30 74 16 01/23/20 17:12 98.7 F 67 16 96/67 01/23/20 12:34 98.3 F 75 18 105/74 01/23/20 12:00 97.6 F 01/23/20 11:56 78 16 102/69 01/23/20 09:03 100/71 01/23/20 07:53 80 99/66 Pulse Ox 01/24/20 04:00 96 01/24/20 00:00 98 01/23/20 23:00 01/23/20 20:00 100 01/23/20 19:30 01/23/20 17:12 98 01/23/20 12:34 99 01/23/20 12:00 01/23/20 11:56 100 01/23/20 09:03 01/23/20 07:53 99 Intake and Output 01/23/20 01/24/20 01/24/20 22:59 06:59 14:59 Intake Total 480 Balance 480 Intake: Oral 480 Other: Voiding Method Toilet Toilet # Voids 1 1 Results 01/23/20 06:44 01/23/20 06:44 Cardiac Enzymes 01/23/20 01/23/20 Range/Units 12:11 19:04 Troponin I <0.012 <0.012 (0.000-0.034) ng/mL Current Medications Generic Name Dose Route Start Last Admin Trade Name Freq PRN Reason Stop Dose Admin Aspirin 325 mg 01/24/20 09:00 Aspirin PO DAILY [facility] Azithromycin 250 mg 01/24/20 09:00 Zithromax PO DAILY [facility] Dicyclomine HCl 20 mg 01/23/20 11:28 Bentyl PO DAILY PRN IBS Duloxetine HCl 30 mg 01/24/20 09:00 Cymbalta PO DAILY [facility] Insulin Human Lispro 0.01 unit 01/23/20 11:30 01/23/20 14:00 Humalog (For Pump) SQ-PUMP Not Given CONTINUOUS [facility] Ketorolac Tromethamine 30 mg 01/23/20 09:17 Toradol IVP 01/28/20 09:31 Q6H PRN Pain Morphine Sulfate 2 mg 01/23/20 09:17 Morphine Sulfate (Inj) IVP Q6H PRN Pain Nortriptyline HCl 25 mg 01/23/20 17:30 01/23/20 17:16 Pamelor PO 25 mg AC-SUPPER [facility] Administration Pantoprazole Sodium 40 mg 01/24/20 07:30 Protonix PO AC-BRKFST [facility] Intake and Output 01/23/20 01/24/20 01/24/20 22:59 06:59 14:59 Intake Total 480 Balance 480 Intake: Oral 480 Other: Voiding Method Toilet Toilet # Voids 1 1 01/23/20 06:44 01/23/20 06:44
[2020-01-24 08:29] VITALS: BP 106/73; PULSE 72; RESP 18; TEMP 98
[2020-01-24 08:54] LABS: Cholesterol 100 mg/dL (<200); HDL Cholesterol 48 mg/dL (40-60); LDL Cholesterol,Calculated 43 mg/dL (0-99); Triglycerides 44 mg/dL (<150)
[2020-01-24] MEDS ORDERED: ASPIRIN 325 MG TAB PO SCH (09:00)
[2020-01-24] MEDS ORDERED: AZITHROMYCIN 250 MG TAB PO SCH (09:00)
[2020-01-24] MEDS ORDERED: DULoxetine HCL 30 MG CAPSULE.DR PO SCH (09:00)
--- NOTE | 2020-01-24 09:38 | P.DS ---
Providers Date of admission: 01/23/20 09:10 Expected date of discharge: 01/24/20 Attending physician: Uziel Goodman Consults: 01/23/20 09:15 Consult Physician Routine Consulting Provider: [facility] Consult Reason/Comments: claudia SZYMANSKI trop Do you want consulting provider notified?: Yes Primary care physician: Uziel Goodman [facility] Course: 39-year-old female one of my patient with a previous medical history significant for diabetes mellitus type 1 currently on insulin pump, fibromyalgia,anxiety disorder, irritable bowel syndrome, post traumatic stress disorder, Rheumatoid arthritis, possible lupus,patient was seen in my office a few days ago because of increased sore throat associated with low-grade temperature and minimal cough she was started on Z-Janes she took 2 pills of that and she was doing better she woke up at 5:00 in the morning today with the significant epigastric upper chest pain radiating up to the neck that woke her up from sleep and radiating to the back as well she could not catch her breath at that time and she could barely walk she ended up calling her parents and she decided to come to the ER for evaluation patient was complaining of some numbness feeling around her legs that comes and goes, she was seen in the ER had a twelve-lead EKG that showed normal sinus rhythm without acute ST-T wave changes, her laboratory evaluation basically came back negative troponin came back negative 2, however because of the presentation patient was admitted to the hospital for evaluation by cardiology, patient stated that she did not eat much last night she had a Powerade and the only new medication that she took the day before was her Z-Janes, patient is denying any fever or chills at this time she has no dysuria she has no costovertebral tenderness, she was complaining of left lower extremity cramps, patient appeared a bit somewhat nauseated but she was complaining of abdominal pain as well, patient was admitted for evaluation and she will have an echocardiogram for evaluation of her LV function . patient underwent echocardiogram still pending at the time of dictation, she is feeling better today, was seen in consultation by cardiology and it was recommended to follow up as an outpatient. Discharge diagnoses: 1. Chest pain likely non cardiac .. Musculoskeletal. 2. Diabetes mellitus type 1. 3. Fibromyalgia. 4. Rheumatoid arthritis and possible lupus. 5. Anxiety disorder. 6. Depression with post traumatic stress disorder. 7. Recent pharyngitis. Patient Condition at Discharge: Fair Plan - Discharge Summary Discharge Rx Participant: Yes New Discharge Prescriptions: Continue INSULIN LISPRO (For Pump) [humaLOG (For Pump)] 0.01 units SQ-PUMP CONTINUOUS DULoxetine HCL [Cymbalta] 30 mg PO DAILY Azithromycin [Zithromax Z-pack] See Taper PO DIRECTED Nortriptyline [Pamelor] 25 mg PO AC-SUPPER Dicyclomine [Bentyl] 20 mg PO DAILY PRN PRN Reason: IBS Discharge Medication List INSULIN LISPRO (For Pump) [humaLOG (For Pump)] 0.01 units SQ-PUMP CONTINUOUS 07/23/19 [History] Azithromycin [Zithromax Z-pack] See Taper PO DIRECTED 01/23/20 [History] DULoxetine HCL [Cymbalta] 30 mg PO DAILY 01/23/20 [History] Dicyclomine [Bentyl] 20 mg PO DAILY PRN 01/23/20 [History] Nortriptyline [Pamelor] 25 mg PO AC-SUPPER 01/23/20 [History] Follow up Appointment(s)/Referral(s): Demetrio Cramer MD [STAFF PHYSICIAN] - 1 Week Uziel Goodman MD [Primary Care Provider] - 1-2 days Discharge Disposition: HOME SELF-CARE
[2020-01-24 11:29] LABS: Glucose,Whole Blood 211 mg/dL (75-99)
--- NOTE | 2020-01-24 16:00 | ECHOF ---
Referral Reason:LVF MEASUREMENTS -------- HEIGHT: 154.9 cm WEIGHT: 61.2 kg BP: 102/67 IVSd: 0.6 cm (0.6 - 1.1) LVIDd: 4.0 cm (3.9 - 5.3) LVPWd: 0.8 cm (0.6 - 1.1) IVSs: 1.0 cm LVIDs: 2.8 cm LVPWs: 1.0 cm LA Diam: 2.6 cm (2.7 - 3.8) RVIDd: 2.6 cm (< 3.3) LAESV Index (A-L): 18.22 ml/m Ao Diam: 2.7 cm (2.0 - 3.7) AV Cusp: 1.7 cm (1.5 - 2.6) EPSS: 0.2 cm MV E Titi: 0.99 m/s MV DecT: 164 ms MV A Titi: 0.51 m/s MV E/A Ratio: 1.93 RAP: 5.00 mmHg RVSP: 27.00 mmHg MV EF SLOPE: 160.90 mm/s (70 - 150) MV EXCURSION: 17.42 mm (> 18.000) FINDINGS -------- Sinus rhythm. This was a technically good study. The left ventricular size is normal. Left ventricular wall thickness is normal. Overall left vent ricular systolic function is normal with, an EF between 60 - 65 %. The right ventricle is normal in size. Normal LA size by volume 22+/-6 ml/m2. The right atrium is normal in size. Interatrial and interventricular septum intact. The aortic valve is trileaflet and appears structurally normal. There is trace to mild mitral regurgitation. Mild tricuspid regurgitation present. Right ventricular systolic pressure is normal at < 35 mmHg. Trace/mild (physiologic) pulmonic regurgitation. The aortic root size is normal. Normal inferior vena cava with normal inspiratory collapse consistent with estimated right atrial pre ssure of 5 mmHg. There is no pericardial effusion. CONCLUSIONS -------- 1. Sinus rhythm. 2. This was a technically good study. 3. The left ventricular size is normal. 4. Left ventricular wall thickness is normal. 5. Overall left ventricular systolic function is normal with, an EF between 60 - 65 %. 6. The right ventricle is normal in size. 7. Normal LA size by volume 22+/-6 ml/m2. 8. The right atrium is normal in size. 9. Interatrial and interventricular septum intact. 10. The aortic valve is trileaflet and appears structurally normal. 11. There is trace to mild mitral regurgitation. 12. Mild tricuspid regurgitation present. 13. Right ventricular systolic pressure is normal at < 35 mmHg. 14. Trace/mild (physiologic) pulmonic regurgitation. 15. The aortic root size is normal. 16. Normal inferior vena cava with normal inspiratory collapse consistent with estimated right atrial pressure of 5 mmHg. 17. There is no pericardial effusion. ELECTRONIC [employer] TECHNICIAN: Yvette Mccurdy RDCS
== END 2020-01-24 14:21 | disposition home or self-care (01) ==
LOC: EC 06:08 → 3SCARD 09:10 → 1SOBS 09:54
PROVIDERS: ADMIT Internal Medicine; ATTEND Internal Medicine
DX: R07.89 Other chest pain (principal); E10.65 Type 1 diabetes mellitus with hyperglycemia; E06.3 Autoimmune thyroiditis; K58.9 Irritable bowel syndrome, unspecified; J02.9 Acute pharyngitis, unspecified; M06.9 Rheumatoid arthritis, unspecified; M19.90 Unspecified osteoarthritis, unspecified site; I73.00 Raynaud's syndrome without gangrene; R11.0 Nausea; R10.13 Epigastric pain; F40.240 Claustrophobia; R20.0 Anesthesia of skin; F43.10 Post-traumatic stress disorder, unspecified; F32.9 Major depressive disorder, single episode, unspecified; F41.9 Anxiety disorder, unspecified; M79.7 Fibromyalgia; Z96.41 Presence of insulin pump (external) (internal); Z03.818 Encounter for observation for suspected exposure to other biological agents ruled out; Z79.4 Long term (current) use of insulin; Z79.899 Other long term (current) drug therapy; Z88.2 Allergy status to sulfonamides; Z88.8 Allergy status to other drugs, medicaments and biological substances; Z88.1 Allergy status to other antibiotic agents; Z91.040 Latex allergy status; Z91.011 Allergy to milk products; Z91.010 Allergy to peanuts; Z91.018 Allergy to other foods; Z86.19 Personal history of other infectious and parasitic diseases; Z90.49 Acquired absence of other specified parts of digestive tract; Z98.51 Tubal ligation status; Z87.81 Personal history of (healed) traumatic fracture; Z87.19 Personal history of other diseases of the digestive system; Z83.49 Family history of other endocrine, nutritional and metabolic diseases; Z80.1 Family history of malignant neoplasm of trachea, bronchus and lung; Z80.8 Family history of malignant neoplasm of other organs or systems; Z82.5 Family history of asthma and other chronic lower respiratory diseases; Z82.69 Family history of other diseases of the musculoskeletal system and connective tissue; Z82.61 Family history of arthritis
CPT/HCPCS: 93005 ×2; 96361; 96374; 96375; 99285; 36415; 93306; 85379; 80061; 80053; 82150; 83690; 83735; 84484; 85025; 85610; 85730; 71046; G0378 ×3; U0003; J2405; J1885

== ENCOUNTER → 2020-01-29 | Outpatient (CLI) | payer MEDICAID ==
--- NOTE | 2020-01-29 12:53 | XR ---
EXAMINATION TYPE: XR foot complete RT DATE OF EXAM: 01/29/2020 COMPARISON: None HISTORY: Injury, pain TECHNIQUE: Three-view right foot FINDINGS: Hallux valgus deformity is present. Mild varus deformity of the fifth digit may be present. Joint spaces are preserved. No acute fractures or dislocations are evident. Soft tissues appear shelby l. Follow-up exams can be performed 7-10 days from acute trauma for continued pain. IMPRESSION: 1. Hallux valgus deformity first digit. 2. No acute osseous abnormality.
== END | disposition home or self-care (01) ==
LOC: RADXRMAIN 12:41
PROVIDERS: ATTEND Internal Medicine
DX: M20.11 Hallux valgus (acquired), right foot (principal); S99.921A Unspecified injury of right foot, initial encounter

== ENCOUNTER → 2020-02-06 | Outpatient (CLI) | payer MEDICAID ==
--- NOTE | 2020-02-06 13:21 | P.STRESS ---
- Stress Test Note Stress Test Results/Findings: Exam Performed: stress echo exercise Exam Date: 02/06/20 Reason for Exam: ABNORMAL ECG, CP Height: 5 ft 1 in Weight: 61 kg Protocol: STRESS ECHO Stage: 5 Duration of Exercise: 13:00 Resting Heart Rate: 90 Resting Blood Pressure: 135/62 Maximum Achieved Heart Rate: 185 Maximum Achieved Blood Pressure: 205/76 85% PMHR: 155 100% PMHR: 182 METS: 13.5 Technologist Comment: Stress Test Results/Findings: This is a 40-year-old female being evaluated for symptoms of chest pain, shortness of breath. Patient has history of diabetes. Stress data Baseline EKG showed sinus rhythm with Respiration. Blood pressure at rest is 135/62 with pulse rate of 90. Patient awoke on the Benji protocol for 13 minutes achieving a maximum rate of 185 with a blood pressure of about 168-107. EKGs taken during and after the exercise did not reveal any significant changes from the baseline. Echo data: Baseline echo images show normal wall motion and thickening. Exercise echo images showed augmentation of wall motion and thickening in all the segments. Final impression: #1. Negative stress test #2. Negative stress echo.
== END | disposition home or self-care (01) ==
LOC: RADNMMAIN 09:32
PROVIDERS: ATTEND Internal Medicine Clinical Cardiac Electrophysiology
DX: R07.89 Other chest pain (principal); R94.31 Abnormal electrocardiogram [ECG] [EKG]
CPT/HCPCS: 93351

== ENCOUNTER → 2020-03-23 | Outpatient (CLI) | payer MEDICAID ==
[2020-03-23 11:52] LABS: African American GFR (CKD) 82.8 (60.0-200.0); Albumin 4.2 g/dL (3.80-4.90); Albumin/Globulin Ratio 1.56 (1.60-3.17); Calcium 9.6 mg/dL (8.7-10.3); Chol/HDL Ratio 2.52; Globulin 2.7 g/dL (1.6-3.3); LDL Cholesterol,Calculated 73.4 mg/dL (0.0-131.0); Non-African American GFR(CKD) 71.4 (60.0-200.0); Potassium 4.4 mmol/L (3.5-5.5); Total Protein 6.9 g/dL (6.2-8.2); VLDL Calculation 17.6 mg/dL (5.00-40.00)
[2020-03-23 12:01] LABS: T4, Free (Free Thyroxine) 0.9 ng/dL (0.80-1.80)
[2020-03-23 14:30] LABS: Microalbumin Creatinine Ratio <30 mg/g Creat (0-30); Urine Creatinine 55.5 mg/dL
[2020-03-23 14:48] LABS: Hemoglobin A1C 8.1 % (4.0-6.0)
== END | disposition home or self-care (01) ==
LOC: LABWHC1 07:10
PROVIDERS: ATTEND Internal Medicine
DX: E06.3 Autoimmune thyroiditis (principal); E10.9 Type 1 diabetes mellitus without complications; E10.65 Type 1 diabetes mellitus with hyperglycemia
CPT/HCPCS: 36415; 80053; 80061; 82043; 82570; 83036; 84439; 84443; 86376

== ENCOUNTER → 2020-03-31 | Outpatient (CLI) | payer MEDICAID ==
--- NOTE | 2020-03-31 12:31 | CT ---
EXAMINATION TYPE: CT chest wo con DATE OF EXAM: 03/31/2020 COMPARISON: Chest x-ray dated 01/23/2020 HISTORY: dyspnea, pt recently diagnosed with multiple auto immune diseases CT DLP: 267.8 mGycm. Automated Exposure Control for Dose Reduction was Utilized. TECHNIQUE: CT scan of the thorax is performed without IV contrast using high-resolution algorithm, l imited scanning in supine and prone positions. FINDINGS: LUNGS: The lungs are grossly clear, there is no concerning parenchymal mass or nodule identified. T here is no pleural effusion or pneumothorax seen. The tracheobronchial tree is patent. There is no t hickening of interlobular septal pleural lines, no bronchiectasis. No evident emphysema. MEDIASTINUM: Lack of IV contrast is noted to limit evaluation for mediastinal and especially hilar ad enopathy. There are no definitive greater than 1 cm hilar or mediastinal lymph nodes. No cardiomega ly or pericardial effusion is seen. OTHER: Patient is post cholecystectomy. IMPRESSION: No significant interstitial lung disease.
== END | disposition home or self-care (01) ==
LOC: RADCTMAIN 09:36
PROVIDERS: ATTEND Internal Medicine Critical Care Medicine
DX: R06.00 Dyspnea, unspecified (principal)
CPT/HCPCS: 71250

== ENCOUNTER → 2020-07-12 | Outpatient (CLI) | payer MEDICAID ==
--- NOTE | 2020-07-13 12:12 | XR ---
EXAMINATION TYPE: XR lumbosacral spine min 4V DATE OF EXAM: 07/12/2020 CLINICAL HISTORY: pain COMPARISON: 03/22/2017 TECHNIQUE: Frontal, lateral, and oblique images of the lumbar spine are obtained. FINDINGS: There are 5 lumbar type vertebral bodies identified. The lumbar spine shows satisfactory alignment without evidence of acute fracture or dislocation. Vertebral body heights are within normal limits. Disc spaces are well preserved. The overlying soft tissue appears unremarkable. IMPRESSION: No acute fracture or dislocation is seen in the lumbar spine.ICD 10 NO FRACTURE, INITIAL EVALUATION
--- NOTE | 2020-07-13 12:14 | XR ---
EXAMINATION TYPE: XR cervical spine w flex/ext DATE OF EXAM: 07/12/2020 TECHNIQUE: Frontal, lateral, oblique, swimmers, and open mouth view of the cervical spine are obtaine d. Flexion and extension views are also submitted. HISTORY: M54.2, M53.3 COMPARISON: None FINDINGS: The cervical spine is visualized in its entirety from C1 thru the top of T1 level, it is s atisfactory in alignment without evidence of acute fracture or dislocation. The pre-vertebral soft t issue appears within normal limits. The C1-C2 articulation is within normal limits on the open mouth view. Mild degenerative narrowing and spur formation at C4-5 and C5-6. Alignment is stable at neutra l, flexion and extension. The oblique images are within normal limits. IMPRESSION: No acute fracture or dislocation is seen in the cervical spine. Mild degenerative change .
== END | disposition home or self-care (01) ==
LOC: RADXRMAIN 17:05
PROVIDERS: ATTEND Internal Medicine
DX: M47.812 Spondylosis without myelopathy or radiculopathy, cervical region (principal); M53.3 Sacrococcygeal disorders, not elsewhere classified
CPT/HCPCS: 72052; 72110

== ENCOUNTER → 2020-07-13 | Outpatient (CLI) | payer MEDICAID ==
[2020-07-13 10:07] LABS: Urine Creatinine 209.6 mg/dL
[2020-07-13 11:56] LABS: ALT 14 U/L (8-44); AST 21 U/L (13-35); African American GFR (CKD) 108.4 (60.0-200.0); Albumin/Globulin Ratio 1.54 (1.60-3.17); Alkaline Phosphatase 152 U/L (41-126); BUN/Creat Ratio 13.75 Ratio (12.00-20.00); Calcium 9.4 mg/dL (8.7-10.3); Chloride 106 mmol/L (96-109); Chol/HDL Ratio 2.17; Cholesterol 141 mg/dL (0-200); Globulin 2.6 g/dL (1.6-3.3); Glucose 79 mg/dL (70-110); Non-African American GFR(CKD) 93.5 (60.0-200.0); Potassium 3.9 mmol/L (3.5-5.5); Sodium 140 mmol/L (135-145); Total Protein 6.6 g/dL (6.2-8.2); Triglycerides <50.0 mg/dL (0.0-149.0)
[2020-07-13 15:13] LABS: Hemoglobin A1C 8.5 % (4.0-6.0)
== END | disposition home or self-care (01) ==
LOC: LABWHC1 06:52
PROVIDERS: ATTEND Internal Medicine Endocrinology, Diabetes & Metabolism
DX: E10.65 Type 1 diabetes mellitus with hyperglycemia (principal); E04.2 Nontoxic multinodular goiter
CPT/HCPCS: 36415; 80053; 80061; 82043; 82570; 83036; 84439; 84443

== ENCOUNTER → 2020-10-08 | Outpatient (CLI) | payer MEDICAID ==
[2020-10-08 11:19] LABS: Basophils # (A) 0.02 X 10*3/uL (0.00-0.10); Basophils % (A) 0.3 %; Eosinophils # (A) 0.09 X 10*3/uL (0.04-0.35); Eosinophils % (A) 1.4 %; HCT 43.2 % (37.2-46.3); HGB 14.4 g/dL (12.0-15.0); Lymphocytes # (A) 1.44 X 10*3/uL (0.90-5.00); Lymphocytes % (A) 22.5 %; MCH 30.9 pg (27.0-32.0); MCHC 33.3 g/dL (32.0-37.0); MCV 92.7 fL (80.0-97.0); Mean Platelet Volume 10.5 fL (9.5-12.2); Monocytes # (A) 0.58 X 10*3/uL (0.20-1.00); Monocytes % (A) 9.1 %; Neutrophils # (A) 4.26 X 10*3/uL (1.80-7.70); Neutrophils % (A) 66.5 %; Platelet Count 320 X 10*3/uL (140-440); RBC 4.66 X 10*6/uL (4.10-5.20); RDW 12.4 % (11.5-14.5)
[2020-10-08 12:36] LABS: Urine Creatinine 246.4 mg/dL
[2020-10-08 12:44] LABS: Albumin 4.4 g/dL (3.80-4.90); Albumin/Globulin Ratio 1.83 (1.60-3.17); BUN/Creat Ratio 11.11 Ratio (12.00-20.00); Chol/HDL Ratio 2.25; Globulin 2.4 g/dL (1.6-3.3); LDL Cholesterol,Calculated 63.6 mg/dL (0.0-131.0); Non-African American GFR(CKD) 81.1 (60.0-200.0); Potassium 3.9 mmol/L (3.5-5.5); Total Bilirubin 0.5 mg/dL (0.3-1.2); Total Protein 6.8 g/dL (6.2-8.2); VLDL Calculation 10.4 mg/dL (5.00-40.00)
[2020-10-08 14:50] LABS: Cyclic Citrull Pep IgG Unit 1.2 U/mL; Cyclic Citrullinated Pep IgG NEGATIVE (NEGATIVE)
[2020-10-08 18:06] LABS: Hemoglobin A1C 7.7 % (4.0-6.0)
== END | disposition home or self-care (01) ==
LOC: LABWHC1 06:58
PROVIDERS: ATTEND Pediatrics
DX: Z00.00 Encounter for general adult medical examination without abnormal findings (principal); E10.65 Type 1 diabetes mellitus with hyperglycemia; E78.2 Mixed hyperlipidemia; M05.69 Rheumatoid arthritis of multiple sites with involvement of other organs and systems; B27.90 Infectious mononucleosis, unspecified without complication
CPT/HCPCS: 36415; 80053; 80061; 82043; 82570; 83036; 84443; 85025; 86038; 86200; 86235; 86431; 86663; 86665

== ENCOUNTER → 2021-01-24 | Outpatient (CLI) | payer OTHER ==
--- NOTE | 2021-01-25 08:22 | XR ---
EXAMINATION TYPE: XR Hip Complete RT DATE OF EXAM: 01/24/2021 COMPARISON: NONE HISTORY: Pain TECHNIQUE: 2 views submitted FINDINGS: There is no evidence of erosive change or acute fracture. Tiny calcification adjacent to the acetabul um. There are calcifications in IMPRESSION: 1. Tiny calcification adjacent to the acetabulum be associated with chronic acetabular labral tear..
--- NOTE | 2021-01-25 08:25 | XR ---
EXAM TYPE: LUMBAR SPINE X RAY SERIES COMPARISON: 07/12/2020 HISTORY: Pain TECHNIQUE: 4 views are submitted. FINDINGS: Alignment is anatomic. The pedicles are intact. The transverse processes are intact. There is no s pondylolysis or spondylolisthesis. Surgical clips in the abdomen IMPRESSION: 1. No acute process. If there is concern for disc herniation correlate with MRI.
== END | disposition home or self-care (01) ==
LOC: RADXRMAIN 16:48
PROVIDERS: ATTEND Internal Medicine
DX: M54.5 Low back pain (principal); M71.451 Calcium deposit in bursa, right hip
CPT/HCPCS: 72100; 73502

== ENCOUNTER → 2021-04-22 | Outpatient (CLI) | payer OTHER ==
--- NOTE | 2021-04-22 12:06 | XR ---
KUB HISTORY: Right upper quadrant pain KUB submitted on a single image, correlation to previous exam dated 11/04/2014 There is a extensive retained fecal debris throughout the distribution of the colon which obscures un derlying detail. Surgical clips are present in the right upper quadrant. Probable vascular calcificat ions present within the pelvis. No evident pneumoperitoneum or bowel obstruction. Bone mineralization is normal. IMPRESSION: Correlate for fecal stasis. Stopped changes.
== END | disposition home or self-care (01) ==
LOC: RADXRMAIN 11:10
PROVIDERS: ATTEND Internal Medicine
DX: R10.11 Right upper quadrant pain (principal)
CPT/HCPCS: 74018

== ENCOUNTER 2021-07-28 09:05 | Day surgery (SDC) | payer OTHER ==
[2021-07-28 09:41] VITALS: RESP 18; TEMP 98.1
--- NOTE | 2021-07-28 10:47 | US ---
ULTRASOUND GUIDED FNA THYROID BIOPSY: CLINICAL HISTORY: Left thyroid nodule FINDINGS: The procedure was explained to the patient. The risks, complications, benefits and alternatives were discussed and any questions were answered. Informed consent was obtained. Patient was placed supin e on the ultrasound table and prepped and draped in the usual sterile fashion. Utilizing a 25 gauge needle, five passes were made into the requested left thyroid nodule. Patient was stable throughout the procedure. Pathology is pending. All elements of maximal barrier technique were utilized. IMPRESSION: 1. Successful ultrasound guided FNA thyroid biopsy.
[2021-07-28 10:48] VITALS: BP 105/69; PULSE 103
== END 2021-07-28 10:45 | disposition home or self-care (01) ==
LOC: RADPROMAIN 09:05
PROVIDERS: ATTEND Internal Medicine
DX: E04.1 Nontoxic single thyroid nodule (principal); E10.65 Type 1 diabetes mellitus with hyperglycemia; E78.2 Mixed hyperlipidemia; E83.51 Hypocalcemia; F41.9 Anxiety disorder, unspecified; M79.7 Fibromyalgia; M06.9 Rheumatoid arthritis, unspecified; F32.9 Major depressive disorder, single episode, unspecified; F42.9 Obsessive-compulsive disorder, unspecified; Z90.49 Acquired absence of other specified parts of digestive tract; Z98.51 Tubal ligation status; Z98.890 Other specified postprocedural states; Z83.438 Family history of other disorder of lipoprotein metabolism and other lipidemia; Z82.49 Family history of ischemic heart disease and other diseases of the circulatory system; Z82.69 Family history of other diseases of the musculoskeletal system and connective tissue; Z82.5 Family history of asthma and other chronic lower respiratory diseases; Z83.3 Family history of diabetes mellitus; Z80.1 Family history of malignant neoplasm of trachea, bronchus and lung; Z80.8 Family history of malignant neoplasm of other organs or systems; Z79.899 Other long term (current) drug therapy; Z88.2 Allergy status to sulfonamides
CPT/HCPCS: 10005; 88173; 88305

== ENCOUNTER → 2021-08-19 | Outpatient (CLI) | payer OTHER | END | disposition home or self-care (01) | LOC: LABWHC1 09:50 | PROVIDERS: ATTEND Internal Medicine Clinical Cardiac Electrophysiology | DX: Z20.822 Contact with and (suspected) exposure to COVID-19 (principal) | CPT/HCPCS: U0003; C9803; U0005 ==

== ENCOUNTER 2021-08-23 07:49 | Day surgery (SDC) | payer OTHER ==
[2021-08-16 12:33] VITALS: BMI 23.6
[~2021-08-23 07:49] MED LIST changes: -DEXAMETHASONE SOD PHOSPHATE 10 MG/ML 1 ML VIAL IV ONE; -LACTATED RINGERS 1,000 ML IV SCH; -MIDAZOLAM 2 MG/2 ML VIAL IV PRN; -ONDANSETRON 4 MG/2 ML VIAL IVP ONE; -Pre Op ABX Message 1 EACH MISC MISCELLANE ONE; -SCOPOLAMINE 1.5MG/72HR PATCH TRANSDERM ONE; +SODIUM CHLORIDE 0.9% 1,000 ML IV SCH; -fentaNYL (PF) 50 MCG/ML 2 ML AMP IV PRN
[2021-08-23] MEDS ORDERED: SODIUM CHLORIDE 0.9% 500 ML 500 ML IV ONE (08:10)
[2021-08-23 08:36] LABS: Glucose,Whole Blood 229 mg/dL (75-99)
--- NOTE | 2021-08-23 16:03 | P.EPPROC ---
- EP Procedure Note Electrophysiology Procedure Note: Diagnosis Recurrent syncope Twelve-lead EKG shows sinus rhythm normal [place] incomplete right bundle branch block normal ST segments normal QT interval No delta waves Normal ST segments Tilt table test per protocol Blood pressure 112/70 mmHg heart rate 79 beats a minute Patient was tilted upright at an angle of 70 per protocol There is no change in blood pressure Minimal increase in heart rate, 98 beats a minute No evidence for neurocardiogenic syncope No evidence for dysautonomia Impression normal heart rate and blood pressure response to upright tilting Patient complained of being dizzy with change in position, Intermittently she complained off right-sided chest discomfort, feeling tired but without any heart rate and blood pressure changes
== END 2021-08-23 10:28 | disposition home or self-care (01) ==
LOC: CATHEP 07:49
PROVIDERS: ATTEND Internal Medicine Clinical Cardiac Electrophysiology
DX: R55 Syncope and collapse (principal); Z20.822 Contact with and (suspected) exposure to COVID-19; I45.10 Unspecified right bundle-branch block; R07.89 Other chest pain
CPT/HCPCS: 87635; 93660

== ENCOUNTER → 2021-10-06 | Outpatient (CLI) | payer OTHER ==
[~2021-10-06] MED LIST changes: -SODIUM CHLORIDE 0.9% 1,000 ML IV SCH; +SODIUM CHLORIDE 0.9% 50 ML IVPB NR; +SODIUM CHLORIDE 0.9% 500 ML 500 ML in EMPTY BAG 1 BAG IV PRN; +SOTROVIMAB (EUA) 500 MG in SODIUM CHLORIDE 0.9% 100 ML IVPB NR
[2021-10-06 13:53] VITALS: RESP 16; TEMP 98.2
[2021-10-06 14:56] VITALS: BP 108/70; PULSE 61
== END ==
LOC: PROCWHC3 13:05
PROVIDERS: ATTEND Internal Medicine
DX: U07.1 COVID-19 (principal); Z91.040 Latex allergy status; Z88.2 Allergy status to sulfonamides; Z91.018 Allergy to other foods; Z91.014 Allergy to mammalian meats; Z91.011 Allergy to milk products; Z88.8 Allergy status to other drugs, medicaments and biological substances
CPT/HCPCS: 96360; Q0247; M0247

== ENCOUNTER → 2023-09-27 | Outpatient (CLI) | payer BC ==
--- NOTE | 2023-09-27 15:15 | CT ---
EXAMINATION TYPE: CT abdomen pelvis wo con CT DLP: 303.6 mGycm, Automated exposure control for dose reduction was used. DATE OF EXAM: 09/27/2023 2:05 PM COMPARISON: CT abdomen most recent from 11/24/2015. CLINICAL INDICATION:Female, 43 years old with history of R10.11 RUQ pain; back pain, UTI TECHNIQUE: Standard CT of the abdomen and pelvis without IV or oral contrast. Lack of IV or oral co ntrast limits evaluation of solid and hollow organ viscera. Coronal and sagittal reformats were perfo rmed. FINDINGS: LOWER CHEST: Unremarkable ABDOMEN LIVER: Unremarkable GALLBLADDER AND BILE DUCTS: The gallbladder is surgically absent. PANCREAS: Unremarkable. SPLEEN: Unremarkable. ADRENAL GLANDS: Unremarkable. KIDNEYS AND URETERS: No evidence of hydronephrosis or renal calculus. The ureters are unremarkable. PELVIS BLADDER: Unremarkable REPRODUCTIVE: There is a hypodense 1 cm lesion within the region of the uterine fundus. ABDOMEN & PELVIS STOMACH AND BOWEL: Stomach and duodenum are unremarkable. The appendix is within normal limits. Mild amount of stool is present throughout the colon. No evidence of bowel obstruction. PERITONEUM: No evidence of pneumoperitoneum or free fluid. VASCULATURE: No evidence of aortic aneurysm. MUSCULOSKELETAL: No acute osseous abnormalities LYMPH NODES: No gross evidence for lymphadenopathy. SOFT TISSUE/ABDOMINAL WALL: Small fat filled hernia. IMPRESSION: 1. No acute process. 2. Hypodense 1 cm lesion within the region of the uterine fundus which may represent a fibroid. Consi mitch further evaluation with pelvic ultrasound.
== END | disposition home or self-care (01) ==
LOC: RADCTMAIN 13:27
PROVIDERS: ATTEND Internal Medicine
DX: R10.31 Right lower quadrant pain (principal); R10.11 Right upper quadrant pain
CPT/HCPCS: 74176

== ENCOUNTER → 2023-10-16 | Outpatient (CLI) | payer BC ==
--- NOTE | 2023-10-16 16:50 | XR ---
EXAMINATION TYPE: XR chest 2V DATE OF EXAM: 10/16/2023 2:37 PM CLINICAL INDICATION:Female, 43 years old with history of R06.02 SHORTNESS OF BREATH; [facility] COMPARISON: Chest radiographs from 01/23/2020 TECHNIQUE: XR chest 2V Frontal and lateral views of the chest. FINDINGS: Lungs/Pleura: There is no evidence of pleural effusion, focal consolidation, or pneumothorax. Pulmonary vascularity: Unremarkable. Heart/mediastinum: Cardiomediastinal silhouette is unremarkable. Musculoskeletal: No acute osseous pathology. IMPRESSION: No acute cardiopulmonary disease/process.
== END | disposition home or self-care (01) ==
LOC: RADXRMAIN 14:20
PROVIDERS: ATTEND Internal Medicine
DX: R06.02 Shortness of breath (principal)
CPT/HCPCS: 71046

== ENCOUNTER → 2024-03-18 | Outpatient (CLI) | payer BC ==
--- NOTE | 2024-03-18 12:53 | XR ---
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 Additio nal flexion and bending views. FINDINGS: The osseous structures show normal alignment without evidence of an acute fracture. There are osteoph ytes noted throughout the cervical spine on the anterior and lateral aspects of the vertebral bodies. The intervertebral disk spaces are narrowed at multiple levels. Pedicles are intact. Soft tissues a re within normal limits. The odontoid appears intact. No abnormal alignment flexion and extension vie ws. IMPRESSION: 1. No fracture or dislocation. 2. Mild degenerative disc disease changes of the cervical spine.
== END | disposition home or self-care (01) ==
LOC: RADXRMAIN 11:36
PROVIDERS: ATTEND Internal Medicine
DX: M47.812 Spondylosis without myelopathy or radiculopathy, cervical region (principal); M50.30 Other cervical disc degeneration, unspecified cervical region
CPT/HCPCS: 72052

== ENCOUNTER → 2024-12-18 | Outpatient (CLI) | payer OTHER ==
[2024-12-18 22:20] LABS: DNA Double-Stranded Indetermin (Negative)
[2024-12-19 12:50] LABS: Histone Antibody 0.3 UNITS (<1.0)
== END | disposition home or self-care (01) ==
LOC: LABWHC1 13:59
PROVIDERS: ATTEND Internal Medicine
DX: M05.69 Rheumatoid arthritis of multiple sites with involvement of other organs and systems (principal)
CPT/HCPCS: 36415; 83516; 86160; 86162; 86225; 86235

== ENCOUNTER → 2025-02-18 | Outpatient (CLI) | payer OTHER ==
--- NOTE | 2025-02-18 14:12 | XR ---
EXAMINATION TYPE: XR KUB DATE OF EXAM: 02/18/2025 COMPARISON: CT abdomen and pelvis 09/27/2023, KUB radiograph 04/22/2021 HISTORY: Lower abdominal pain TECHNIQUE: Single supine KUB image of the abdomen is obtained FINDINGS: Small bowel demonstrates no evidence for dilatation or air fluid levels. Gas and fecal material is seen in non-distended colon. No convincing evidence for pneumoperitoneum. Couple of right-sided pelvic phleboliths. Cholecystectomy clips in the right upper quadrant. The osseous structures are intact. IMPRESSION: Overall nonobstructive bowel gas pattern. [facility], , 02/18/2025 2:09 PM
== END | disposition home or self-care (01) ==
LOC: RADXRMAIN 13:10
DX: R10.30 Lower abdominal pain, unspecified (principal); R14.0 Abdominal distension (gaseous)
CPT/HCPCS: 74018